=== PATIENT | male | born 1970 | race Caucasian/White ===

== ENCOUNTER 2022-01-04 22:52 | Emergency (ER) | payer BC, SELFPAY ==
--- NOTE | ~2022-01-04 | CT_ITS ---
EXAMINATION: CT brain wo con INDICATION: Acute onset confusion, seizure COMPARISON: None TECHNIQUE: Standard unenhanced head CT. The dose-length product (DLP) was 605.33 mGy-cm. The mA was a djusted according to patient size. Iterative reconstruction technique was employed. FINDINGS: Motion artifact limits the examination. There is no definite acute infarction or mass lesio n. Areas of hyperattenuation are seen in the frontal lobes which could relate to motion artifact cosby concepción subtle subarachnoid hemorrhage cannot be excluded. The ventricles are normal. There is no abnorma l mass effect or midline shift. The reyes-white matter differentiation is normal. The basal cisterns a re patent. The orbits are normal. The paranasal sinuses, mastoids and calvarium are normal. IMPRESSION: 1. Grossly no acute intracranial abnormality. Areas of hyperattenuation in the frontal lobes likely r eflect motion artifact but could obscure subtle subarachnoid hemorrhage. Repeat CT is recommended. As per stroke protocol, I called these findings and recommendations to the Emergency Department, and discussed with Dr. Chevy Ramos III, DO at 2316 hours. Reviewed, dictated and finalized at location F. IMPRESSION: 1. Grossly no acute intracranial abnormality. Areas of hyperattenuation in the frontal lobes likely reflect motion artifact but could obscure subtle subarachn oid hemorrhage. Repeat CT is recommended. As per stroke protocol, I called these findings and recommendations to the [facility], and discussed with Dr. Chevy Ramos III, DO at 2316 hour s.
--- NOTE | ~2022-01-04 | CT_ITS ---
EXAMINATION: CT brain wo con DATE: 01/04/2022 23:37 INDICATION: Cerebrovascular accident. TECHNIQUE: Computed tomography (CT) of the head was performed without intravenous contrast. The mA wa s adjusted according to patient size. Iterative reconstruction technique was employed. The dose-lengt h product was 832.33 mGy-cm. COMPARISON: Head CT at 11:03 PM FINDINGS: There is hyperdense acute subarachnoid hemorrhage in the anterior interhemispheric fissure and in left frontal lobe sulci. There is no acute ischemic infarct or abnormal mass lesion. The ventr icles are normal in size. There is mild mucosal thickening in the paranasal sinuses. The orbits are n ormal. The mastoid air cells are normal. IMPRESSION: 1. Acute subarachnoid hemorrhage in the anterior interhemispheric fissure and in left frontal lobe larios lci. Reviewed, dictated and finalized at location A. IMPRESSION: 1. Acute subarachnoid hemorrhage in the anterior interhemispheric fissure and i n left frontal lobe sulci.
--- NOTE | ~2022-01-04 | XR_ITS ---
EXAMINATION: XR chest 1V portable DATE: 01/05/2022 00:03 INDICATION: Cerebrovascular accident. TECHNIQUE: A single frontal view of the chest was obtained. COMPARISON: None. FINDINGS: A calcified right lung nodule and calcified mediastinal lymph nodes are consistent with old granulomas disc disease. No pleural effusion or pneumothorax. Cardiomegaly is noted. IMPRESSION: 1. Cardiomegaly. Reviewed, dictated and finalized at location A. IMPRESSION: 1. Cardiomegaly.
--- NOTE | 2022-01-04 22:56 | ECG_ITS ---
Measurements Intervals [place] Rate: 94 P: 15 OK: 165 QRS: 37 QRSD: 112 T: 29 QT: 367 QTc: 460 Interpretive Statements SINUS RHYTHM NORMAL EKG NO PREVIOUS ECG AVAILABLE FOR COMPARISON Electronically Signed On 01-06-2022 13:21:10 CDT by Sarah Bal M.D.
--- NOTE | 2022-01-04 22:59 | PC.NURSE ---
Per ED charge Nurse pt. has a SZ. HANS Ramos 2mg Ativan IVP
--- NOTE | 2022-01-04 23:05 | ED.NEUROSD ---
HPI - Neuro Symptoms/Deficit General Chief Complaint: Suspected CVA Stated Complaint: STROKE SYMPTOMS Time Seen by Provider: 01/04/22 22:57 Source: EMS Mode of arrival: EMS Limitations: altered mental status History of Present Illness HPI Narrative: Per EMS patient became acutely confused about 30 minutes ago. On arrival patient was confused and only followed some simple commands but was otherwise unresponsive. Pt had a generalized seizure on the way to CT. Onset (ago): minute(s) (30) History of same: No Related Data Allergies Allergy/AdvReac Type Severity Reaction Status Date / Time No Known Allergies Allergy Mild Verified 04/20/13 11:07 Review of Systems Review of Systems: ROS unobtainable: Yes unobtainable due to mental status Exam Const: General: patient obtunded Nutritional Appearance: obese Orientation/consciousness: patient obtunded Limitations: altered mental status HENMT: Head: normal to inspection Eyes: Pupils: Equal, round and reactive pupils present Neck: Neck: normal visual inspection and no meningeal signs Chest: Chest palpation & inspection: normal inspection of the chest Resp: Effort & Inspection: normal respiratory effort Auscultation: clear to auscultation bilaterally Cardio: Rate: tachycardic GI: Inspection: obesity GI Palp: Yes Soft to palpation Skin: General skin exam: normal color, no rashes or lesions noted and turgor normal Neuro: General: patient obtunded Extrem: General: normal to inspection and no clubbing, cyanosis or edema Course Course Emergency Course: Pt a little more alert and responsive at 0010, family with pt. D/W Dr Reese , neurology at [facility] will accept pt, will contact neurosurgery, d/w Chelsey in ER will accept pt Vital Signs Vital signs: Vital Signs Temperature 98.4 F 01/04/22 23:06 Pulse Rate 87 01/04/22 23:06 Respiratory Rate 24 H 01/04/22 23:06 Blood Pressure 197/127 H 01/04/22 23:06 Pulse Oximetry 95 01/04/22 23:06 Temperature 98.4 F 01/04/22 23:06 Pulse Rate 86 01/05/22 00:47 Respiratory Rate 20 01/05/22 00:47 Blood Pressure 186/133 H 01/05/22 00:47 Pulse Oximetry 96 01/05/22 00:47 MDM - Neuro Symptoms/Deficit Lab Data Result diagrams: 01/04/22 23:11 01/04/22 23:11 Labs: Lab Results 01/04/22 01/04/22 01/04/22 Range/Units 23:06 23:11 23:11 WBC 7.3 (4.5-10.0) K/mm3 RBC 5.85 (4.6-6.20) M/mm3 Hgb 16.7 (14.0-18.0) g/dL Hct 52.3 H (42.0-52.0) % MCV 89.4 (80-100) fl MCH 28.5 (26-34) pg MCHC 31.9 L (32-36) g/dl RDW 12.6 (11.5-14.5) % Plt Count 230 (150-375) k/mm3 MPV 9.8 (7.4-10.4) fl Immature Gran % (Auto) 0.5 (0-0.5) % Neut % (Auto) 46.5 (45.5-73.1) % Lymph % (Auto) 42.7 (18.3-44.2) % Porter % (Auto) 7.4 (2.6-8.5) % Eos % (Auto) 2.2 (0-4.4) % Baso % (Auto) 0.7 (0.2-1.2) % Lymph # (Auto) 3.12 (0.9-3.2) K/mm3 Porter # (Auto) 0.5 (0.1-0.6) K/mm3 Eos # (Auto) 0.2 (0-0.3) K/mm3 Baso # (Auto) 0.1 (0.0-0.1) K/mm3 Abs Immat Gran (auto) 0.04 H (0.00-0.031) K/mm3 Absolute Neuts (auto) 3.4 (1.3-6.7) K/mm3 Absolute Nucleated RBC 0.0 (0.0-0.012) K/mm3 Nucleated RBC % 0.0 (0.0-0.2) % PT 13.7 (11.1-14.7) Seconds INR 1.1 APTT 21.3 L (22.3-36.8) SECONDS Sodium (137-145) mmol/L Potassium (3.4-5.0) mmol/L Chloride (98-107) mmol/L Carbon Dioxide (22-30) mmol/L Anion Gap (8-16) mmol/L BUN (9-20) mg/dL Creatinine (0.7-1.3) mg/dL Estim Creat Clear Calc ml/min Estimated GFR (59 - ) Glucose (65-110) mg/dL POC Capillary Glucose > 500 H* (65-105) mg/dl Calcium (8.4-10.2) mg/dL Total Bilirubin (0.2-1.3) mg/dL AST (17-59) U/L ALT (4-50) U/L Alkaline Phosphatase (38-126) U/L Troponin I (0.000-0.034) ng/mL Total Protein (6.3-8.2) g/dL Albumin (3.5-5.1) g/dL Urine Color (Y
[2022-01-04 23:06] VITALS: BP 197/127; PULSE 87; RESP 24; TEMP 36.9; O2SAT 95
[2022-01-04 23:13] LABS: Glucose Point of Care > 500 mg/dl (65-105)
[2022-01-04 23:18] LABS: Basophils Absolute Auto 0.1 K/mm3 (0.0-0.1); Basophils Percent Auto 0.7 % (0.2-1.2); Eosinophils Absolute Auto 0.2 K/mm3 (0-0.3); Eosinophils Percent Auto 2.2 % (0-4.4); Hematocrit 52.3 % (42.0-52.0); Hemoglobin 16.7 g/dL (14.0-18.0); Immature Granulocyte Absolute 0.04 K/mm3 (0.00-0.031); Immature Granulocyte Percent A 0.5 % (0-0.5); Lymphocytes Absolute Auto 3.12 K/mm3 (0.9-3.2); Lymphocytes Percent Auto 42.7 % (18.3-44.2); Mean Corpuscular HGB Conc 31.9 g/dl (32-36); Mean Corpuscular Hemoglobin 28.5 pg (26-34); Mean Corpuscular Volume 89.4 fl (80-100); Mean Platelet Volume 9.8 fl (7.4-10.4); Monocytes Absolute Auto 0.5 K/mm3 (0.1-0.6); Monocytes Percent Auto 7.4 % (2.6-8.5); Neutrophils Absolute Auto 3.4 K/mm3 (1.3-6.7); Neutrophils Percent Auto 46.5 % (45.5-73.1); Platelet Count Result 230 k/mm3 (150-375); Red Blood Count 5.85 M/mm3 (4.6-6.20); Red Cell Distribution Width 12.6 % (11.5-14.5); White Blood Count 7.3 K/mm3 (4.5-10.0)
[2022-01-04 23:29] LABS: Albumin Level 4.5 g/dL (3.5-5.1); Alkaline Phosphatase 82 U/L (38-126); Anion Gap 18 mmol/L (8-16); Aspartate Amino Transferase 53 U/L (17-59); Bilirubin,Total 0.6 mg/dL (0.2-1.3); Blood Urea Nitrogen 17 mg/dL (9-20); Calcium 9.3 mg/dL (8.4-10.2); Carbon Dioxide 22 mmol/L (22-30); Chloride 97 mmol/L (98-107); Estimated CRCL calculation 118 ml/min; Estimated Glomerular Filt Rate > 60; Glucose 483 mg/dL (65-110); INR 1.1; Partial Thromboplastin Time 21.3 SECONDS (22.3-36.8); Potassium 3.7 mmol/L (3.4-5.0); Prothrombin Time 13.7 Seconds (11.1-14.7); Sodium 137 mmol/L (137-145)
[2022-01-04 23:43] LABS: Troponin I < 0.012 ng/mL (0.000-0.034)
[2022-01-04 23:44] LABS: Alanine Aminotransferase 71 U/L (4-50)
[2022-01-04 23:56] VITALS: BP 179/120; RESP 20; O2SAT 99
[2022-01-05] MEDS: INSULIN HUMAN REGULAR (*BKC) 100 UNITS/ML 14 UNITS IV PUSH (00:04)
[2022-01-05 00:18] LABS: Amphetamine Screen Urine Negative (Negative); Barbiturate Screen Urine Negative (Negative); Benzodiazepines Screen Urine Negative (Negative); Cannabinoid Screen Urine Negative (Negative); Cocaine Screen Urine Negative (Negative); Methadone Screen Urine Negative (Negative); Opiate Screen Urine Negative (Negative); Phencyclidine Screen Urine Negative (Negative)
[2022-01-05 00:19] LABS: Add Urine Microscopic? YES; Appearance Urine Clear (Clear); Bilirubin Urine Negative (Negative); Blood Urine 1+ (Negative); Color Urine Straw (Yellow); Glucose Urine UA 3+ mg/dL (Negative); Ketones Urine Negative (Negative); Leukocyte Esterase Ur Negative LEU/UL (Negative); Nitrate Urine Negative (Negative); Protein Urine 3+ mg/dL (Negative); RBC Urine 0-2 /hpf (0-2); Squamous Epithelial Cell Urine Rare /hpf (Few); Urobilinogen Urine Negative mg/dL (<2.0)
[2022-01-05] MEDS: LABETALOL HCL INJ 100 MG/20 ML VIAL 20 MG IV PUSH (00:19)
--- NOTE | 2022-01-05 00:42 | PC.NURSE ---
When the pt arrived at CT he began to have a seizure and was administered 2mg Ativan. The medication was documented as discontinued by this RN in error. The pt received 2mg IV push Ativan at 2259. The pt was also administered Labetelol prior to being transferred to the care of the [facility] team. Repeat blood pressure was not done due to lack of time after dose. Blood sugar was re checked prior to the pt leaving as well. Pt safely transferred to [facility] at this time.
[2022-01-05 00:47] VITALS: BP 186/133; PULSE 86; RESP 20; O2SAT 96
[2022-01-05 00:49] LABS: Glucose Point of Care 327 mg/dl (65-105)
== END 2022-01-05 00:48 | disposition short-term general hospital (02) ==
PROVIDERS: Emergency Provider Emergency Medicine; PCP Family Medicine
DX: I60.9 Nontraumatic subarachnoid hemorrhage, unspecified (principal)
CPT/HCPCS: 36415; 70450; 71045; 80053; 80307; 81001; 82948; 84484; 85025; 85610; 85730; 87086; 93005; 96374; 96375; 99291; J1815; J2060

== ENCOUNTER 2022-03-20 10:16 | Emergency (ER) | payer BC, SELFPAY ==
[2022-03-20 10:38] VITALS: BP 149/95; PULSE 75; RESP 20; TEMP 36.6; O2SAT 99
--- NOTE | 2022-03-20 10:46 | ED.GENADULT ---
HPI - General Adult General Chief complaint: Skin/Abscess/Foreign Body Stated complaint: rash Time Seen by Provider: 03/20/22 10:46 Source: patient Mode of arrival: ambulatory Limitations: no limitations History of Present Illness HPI narrative: 52-year-old male patient presents to the [facility] with complaints of a poison brigida rash to the left arm, right wrist, chin and left leg. Patient states has been there approximately 1 week and has been getting worse. Patient denies using anything over on the rash since it started. Denies taking any antihistamines. Patient states that he is a diabetic and was released from the hospital back in December for a subarachnoid hemorrhage and new onset of diabetes. Patient states that sugars have been doing well and has been monitoring them about 3-4 times a day. Patient denies any chest pain or shortness of breath at this time. Related Data Home Medications Medication Instructions Recorded Confirmed alcohol swabs (BD Alcohol Swabs) pad topical 03/20/22 atorvastatin 10 mg tablet tablet 03/20/22 dulaglutide 0.75 mg/0.5 mL ea subcut 03/20/22 subcutaneous pen injector (Trulicity) insulin glargine 100 unit/mL (3 ea subcut 03/20/22 mL) subcutaneous pen (Basaglar KwikPen U-100 Insulin) lisinopril 20 mg tablet tablet 03/20/22 metoprolol tartrate 25 mg tablet tablet 03/20/22 nimodipine 30 mg capsule cap 03/20/22 pen needle, diabetic 32 gauge x 03/20/22 03/20/22 5/32 (BD Ultra-Fine Mary Pen Needle) Allergies Allergy/AdvReac Type Severity Reaction Status Date / Time No Known Allergies Allergy Mild Verified 04/20/13 11:07 Review of Systems Review of Systems: CONSTITUTIONAL: Denies fever, chills, or sweats. EYES: Denies visual changes, redness, or discharge. ENT: Denies rhinorrhea, congestion, sore throat, or otalgia. CARDIOVASCULAR: Denies chest pain, palpitations, or edema. RESPIRATORY: Denies cough or dyspnea. GASTROINTESTINAL: Denies abdominal pain, nausea, vomiting, or diarrhea. GENITOURINARY: Denies dysuria or hematuria. SKIN: Positive rash with itching to bilateral upper extremities worse on the left. Chin and left lower extremity x1 week MUSCULOSKELETAL: Denies back pain, joint pain, or myalgia. NEUROLOGIC: Denies headache, numbness, or weakness. PSYCHIATRIC: Denies anxiety or depression. [facility] Past Medical History Medical History (Updated 03/20/22 @ 11:12 by CHARLY Mccabe) Hypertension Sleep apnea Subarachnoid hemorrhage Type 2 diabetes mellitus Comments At the time of my signature I agree with nursing past medical history, surgical, social, and family history. There is no relevant family history pertinent to the presenting complaint. Exam Narrative: GENERAL: Well-appearing, well-nourished, and in no acute distress. HEAD: Normocephalic, atraumatic. EYES: PERRLA and EOMI. ENT: Nares clear, no rhinorrhea or epistaxis. Mucous membranes moist. NECK: Supple. No lymphadenopathy CHEST: Clear to auscultation. No respiratory distress. HEART: Regular rate and rhythm. No murmur heard. Normal peripheral pulses. ABDOMEN: Soft, nontender, nondistended, normal active bowel sounds. EXTREMITIES: Normal range of motion. No edema. SKIN: Patient has erythemic papule rash noted to the left arm from the elbow to the wrist. Patient has another patch of a similar looking rash to the right wrist. No other papular red rash to the chin and behind the left calf. There is slight yellow bubbly discharge noted to the left arm which appears to be the worst area. NEURO: No focal deficits. Alert and oriented x3. Course Course Level of Care: Express Care Visit Vital Signs Vital signs: Vital Signs Temperature 36.6 C 03/20/22 10:38 Pulse Rate 75 03/20/22 10:38 Respiratory Rate 20 03/20/22 10:38 Blood Pressure 149/95 H 03/20/22 10:38 Pulse Oximetry 99 03/20/22 10:38 Oxygen Delivery Room Air 03/20/22 10:38 Temperature 36.6 C 03/20/22 10:38
== END 2022-03-20 11:13 | disposition home or self-care (01) ==
PROVIDERS: Emergency Provider Nurse Practitioner Family; PCP Internal Medicine
DX: L25.5 Unspecified contact dermatitis due to plants, except food (principal); I10 Essential (primary) hypertension; E11.9 Type 2 diabetes mellitus without complications; G47.30 Sleep apnea, unspecified
CPT/HCPCS: 99213; G0463

== ENCOUNTER 2022-06-07 10:30 | Outpatient (RCR) | payer BC, SELFPAY | END 2022-06-07 14:16 | disposition home or self-care (01) | LOC: ANHDMC 10:30 | PROVIDERS: PCP Internal Medicine; Visit Provider Internal Medicine | DX: E11.9 Type 2 diabetes mellitus without complications (principal); I60.9 Nontraumatic subarachnoid hemorrhage, unspecified; Z71.89 Other specified counseling | CPT/HCPCS: G0108 ==

== ENCOUNTER 2022-10-04 17:15 | Observation (INO) | payer BC, SELFPAY ==
[2022-10-04] VITALS (23 sets, daily range): BP systolic 150–208; BP diastolic 95–119; PULSE 60–75; RESP 10–29; TEMP 36.2–36.4; O2SAT 95–100; BMI 30.8
--- NOTE | ~2022-10-04 | XR_ITS ---
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 RESULT: Lines, tubes, and devices: None. Lungs and pleura: Clear. Cardiomediastinal silhouette: Stable. Calcified right paratracheal node. Other: No acute osseous or upper abdominal finding. IMPRESSION: No acute cardiopulmonary process. Reviewed, dictated and finalized at location K. ULATING DRYING SUPERVISOR
--- NOTE | ~2022-10-04 | CT_ITS ---
EXAMINATION: CT brain wo con DATE: 10/04/2022 17:50 INDICATION: Hx of subarachnoid hemorrhage, now Hypertensive. TECHNIQUE: Computed tomography (CT) of the head was performed without intravenous contrast. The mA wa s adjusted according to patient size. Iterative reconstruction technique was employed. The dose-lengt h product was 605.33 mGy-cm. COMPARISON: 01/04/2022. FINDINGS: No acute intracranial hemorrhage or extra-axial fluid collection. No hydrocephalus, mass, or herniation. No acute ischemic infarct. Unremarkable dural venous sinus attenuation. No acute osseous abnormality. The aerated spaces are clear. IMPRESSION: No acute intracranial process. Reviewed, dictated and finalized at location K. INSPECTOR
--- NOTE | 2022-10-04 17:38 | ECG_ITS ---
Measurements Intervals [place] Rate: 64 P: 29 ME: 194 QRS: 6 QRSD: 114 T: 21 QT: 386 QTc: 399 Interpretive Statements SINUS RHYTHM ANTEROSEPTAL INFARCT, AGE INDETERMINATE CONSIDER INFERIOR INFARCT, AGE INDETERMINATE BASELINE ARTIFACT- I, II, III, AVR, AVL, AVF ABNORMAL ECG COMPARED TO ECG 01/04/2022 23:09:05 MYOCARDIAL INFARCT FINDING NOW PRESENT Electronically Signed On 10-05-2022 7:42:42 BUSBOY by Waldo Valenzuela D.O.
--- NOTE | 2022-10-04 17:40 | ED.GENADULT ---
HPI - General Adult General Chief complaint: Recheck/Abnormal Lab/Rx <AKASH Enamorado - Last Filed: 12/13/22 09:03> Stated complaint: hypertension <AKASH Enamorado - Last Filed: 12/13/22 09:03> Time Seen by Provider: 10/04/22 17:28 <AKASH Enamorado - Last Filed: 12/13/22 09:03> Source: patient and family <AKASH Enamorado - Last Filed: 12/13/22 09:03> Mode of arrival: ambulatory <AKASH Enamorado - Last Filed: 12/13/22 09:03> Limitations: no limitations <AKASH Enamorado - Last Filed: 12/13/22 09:03> History of Present Illness HPI narrative: This 52 year old male patient with significant PMH of prior spontaneous Subarachnoid Hemorrhage, HTN, DM, and HLD presents to the ER independently ambulatory and accompanied by his family with complaints of Hypertension. Pt. had a spontaneous subarachnoid hemorrhage in December 2021 that was most likely attributed to his elevated blood pressure according to the Neurology staff at [facility]. After he was hospitalized, the pt. started following a strict diet and has lost 100 lbs, dropping his A1C from 14 to 6.0, and with the administration of Blood pressure medications gained control of his blood pressure with his usual BP now running in the low 187m-9-costa/60s-80s. Pt. states that over the course of the past week the patient's BP has gradually increased and has been more unstable with the SBP running 180s-low 200s/90s-low 100s. Along with this elevated BP, the patient has been having increased dizziness that has progressed over the past two days. He denies any change in vision, but reports he has been so dizzy that the room appears to be tilted on it's side. He has no CP, dyspnea, N/V/D. He endorses compliance with HTN regimens. <AKASH Enamorado - Last Filed: 12/13/22 09:03> Onset (ago): day(s) (3-4) <AKASH Enamorado - Last Filed: 12/13/22 09:03> Location: head <AKASH Enamorado Last Filed: 12/13/22 09:03> Radiation: non-radiation <AKASH Enamorado - Last Filed: 12/13/22 09:03> Severity: mild <AKASH Enamorado - Last Filed: 12/13/22 09:03> Quality: aching <AKASH Enamorado - Last Filed: 12/13/22 09:03> Pain Consistency: intermittent (Becoming increasingly constant and increasing in intensity) <AKASH Enamorado - Last Filed: 12/13/22 09:03> Relieving factors: none <AKASH Enamorado - Last Filed: 12/13/22 09:03> Exacerbating factors: none <AKASH Enamorado - Last Filed: 12/13/22 09:03> Associated symptoms: denies other symptoms <AKASH Enamorado Last Filed: 12/13/22 09:03> Related Data Home medications: Home Medications Medication Instructions Recorded Confirmed dulaglutide 0.75 mg/0.5 mL 0.75 mg subcut WEEKLY 03/20/22 10/08/22 subcutaneous pen injector ([facility]) lisinopril 20 mg tablet 20 mg PO DAILY 03/20/22 10/08/22 metoprolol tartrate 25 mg tablet 25 mg PO BID 03/20/22 10/08/22 metformin 500 mg tablet,extended 500 mg PO DAILY 10/04/22 10/08/22 release 24 hr <AKASH Enamorado - Last Filed: 12/13/22 09:03> Allergies/adverse reactions: Allergies Allergy/AdvReac Type Severity Reaction Status Date / Time No Known Allergies Allergy Mild Verified 10/08/22 02:45 <AKASH Enamorado - Last Filed: 12/13/22 09:03> Review of Systems Review of Systems: All systems reviewed & are unremarkable except as noted in HPI and below <AKASH Enamorado - Last Filed: 12/13/22 09:03> [facility] Past Medical History Medical History: Medical History (Updated 10/08/22 @ 11:53 by Ciara Ayers, ) GERD (gastroesophageal reflux disease) Hyperlipidemia Hypertension Obstructive sleep apnea Compliant with CPAP Subarachnoid hemorrhage (12/2021) Managed medically Type 2 diabetes mellitus <Vee Senior
[2022-10-04 18:12] LABS: Basophils Absolute Auto 0.1 K/mm3 (0.0-0.1); Basophils Percent Auto 0.8 % (0.2-1.2); Eosinophils Absolute Auto 0.2 K/mm3 (0-0.3); Eosinophils Percent Auto 3.2 % (0-4.4); Hematocrit 49.5 % (42.0-52.0); Hemoglobin 16.3 g/dL (14.0-18.0); Immature Granulocyte Absolute 0.01 K/mm3 (0.00-0.031); Immature Granulocyte Percent A 0.1 % (0-0.5); Lymphocytes Absolute Auto 2.69 K/mm3 (0.9-3.2); Mean Corpuscular HGB Conc 32.9 g/dl (32-36); Mean Corpuscular Hemoglobin 29.4 pg (26-34); Mean Corpuscular Volume 89.2 fl (80-100); Mean Platelet Volume 8.9 fl (7.4-10.4); Monocytes Absolute Auto 0.5 K/mm3 (0.1-0.6); Monocytes Percent Auto 6.7 % (2.6-8.5); Neutrophils Percent Auto 53.2 % (45.5-73.1); Platelet Count Result 236 k/mm3 (150-375); Red Blood Count 5.55 M/mm3 (4.6-6.20); Red Cell Distribution Width 13.4 % (11.5-14.5); White Blood Count 7.5 K/mm3 (4.5-10.0)
[2022-10-04 18:22] LABS: Alanine Aminotransferase 37 U/L (6-50); Albumin Level 4.9 g/dL (3.5-5.1); Alkaline Phosphatase 61 U/L (38-126); Anion Gap 7 mmol/L (8-16); Aspartate Amino Transferase 34 U/L (17-59); Bilirubin,Total 0.7 mg/dL (0.2-1.3); Blood Urea Nitrogen 22 mg/dL (9-20); Calcium 9.8 mg/dL (8.4-10.2); Carbon Dioxide 30 mmol/L (22-30); Chloride 99 mmol/L (98-107); Estimated CRCL calculation 91 ml/min; Estimated Glomerular Filt Rate > 60; Glucose 98 mg/dL (65-110); Potassium 3.4 mmol/L (3.4-5.0); Sodium 136 mmol/L (137-145)
[2022-10-04 18:33] LABS: Troponin I < 0.012 ng/mL (0.000-0.034)
[2022-10-04] MEDS: LABETALOL HCL INJ 100 MG/20 ML VIAL 10 MG IV PUSH (18:33)
[2022-10-04] MEDS: hydrALAZINE HCL 20 MG/ML VIAL 10 MG IV PUSH ×2 (20:17→23:06)
[2022-10-04 21:18] LABS: Influenza A QL RT-PCR Negative (Negative); Influenza B QL RT-PCR Negative (Negative); RSV RNA, RT-PCR Negative (Negative); SARS-CoV-2 RNA PCR Negative
[2022-10-04] MEDS: METOPROLOL TARTRATE 25 MG TABLET PO (21:25)
--- NOTE | 2022-10-04 22:30 | PC.NURSE ---
Patient care report called to CRISS Khan. All questions answered at this time.
--- NOTE | 2022-10-04 22:55 | ADMGEN ---
This patient, Roel Yo, was admitted to IMU Room 209-01. Patient/family oriented to hospital policies and general routines including ID bracelet, bed and alarms, visiting hours, pain management, procedures, bathroom and other care routines, personal items, smoking policy, room service/diet, and visiting hours. Information on how to activate the Rapid Response Team has been discussed. Patient/Family are encouraged to report perceived risks to care and to ask questions if they do not understand what they are told or what they should do.
[2022-10-05] VITALS (18 sets, daily range): BP systolic 132–163; BP diastolic 80–109; PULSE 51–80; RESP 14–20; TEMP 36.3–36.6; O2SAT 96–100
--- NOTE | 2022-10-05 01:19 | PC.NURSE ---
Maintenance checked home CPAP and said it is ok for hospital use.
--- NOTE | 2022-10-05 02:37 | PM.IMHP ---
H&P: HPI History of Present Illness Date/Time: 10/05/22 00:37 Chief Complaint: Headache, high blood pressure Narrative: 52-year-old male with past medical history of subarachnoid hemorrhage in the left parietal region December 2021, type 2 diabetes mellitus and obstructive sleep apnea who presented to the ER ambulatory from home with headache, dizziness and high blood pressure. The patient reported that for the last 2 or 3 days he has been having left-sided headache and pain to the base of his neck. He reports that the left-sided ache was in the same where he had his prior sub arachnoid hemorrhage in the left parietal region. The headache was 3/10 in intensity. He would lay down and the headache would get better. He was attributing the headache to stress specially the pain at the base of his head. He denies any associated nausea vomiting or visual changes at that time. He told me that he had not been checking his blood pressures the last couple of days but had evidently told the ER staff that he has been checking his blood pressures and they have been gradually going up over the last couple of days. He has not had any recent changes in his blood pressure meds and has been taking his metoprolol 25 mg b.i.d. and lisinopril 20 mg daily as directed. He has not missed any doses. But then today he was walking around the house and stopped to talk to his . He suddenly had a more severe headache with pain being 6/10 intensity dull aching in nature. Without accompanying nausea, vomiting. However he did have vertiginous symptoms. His checked his blood pressure at that time in his systolic blood pressures were in the 180s to 200 over 90-110. He denied any blurred vision, extremity weakness, chest pain, shortness of breath, nausea vomiting or diaphoresis. On arrival to the ER patient's blood pressure was 208/114. He received a dose of IV labetalol and IV hydralazine in the ER. His blood pressures improved to 150/99. He was accepted for admission to the IMU. I requested the patient receive his evening dose of metoprolol. On arrival to the IMU the patient did have a brief recurrent episode of vertigo but was not as severe as when he was at home. He reported that at home he felt as if the room head tipped on X axis any spinning like he had fallen off of a [id number]. Reports that since his hospitalization in December of 2021 he has lost between 70-100 lb. When he was not admitted for his subarachnoid hemorrhage he did not know he was diabetic in his A1c was 14. He has brought his A1c down to 6. He is on Trulicity and metformin at home. He does have obstructive sleep apnea and is compliant with his machine. He has his home CPAP with him. Review of Systems Review of Systems: 12 systems were reviewed with pertinent positives and negatives per HPI. Except as documented in the HPI, all other systems were reviewed and are negative. [facility] Past Medical History Medical History (Updated 10/05/22 @ 03:15 by Marlen Cazares DO) GERD (gastroesophageal reflux disease) Hyperlipidemia Hypertension Obstructive sleep apnea Compliant with CPAP Subarachnoid hemorrhage (12/2021) Managed medically Type 2 diabetes mellitus Surgical History Surgical History (Updated 10/05/22 @ 03:01 by Marlen Cazares DO) No history of previous surgery Family History Family History (Updated 10/05/22 @ 03:01 by Marlen Cazares DO) Other Adopted Social History Social History (Updated 10/05/22 @ 03:03 by Marlen Cazares DO) Social History: 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 He has 2 teenage children. He denies any history of tobacco or drug use. He drinks maybe 1 alcoholic beverage a month. Code status: Full code Surrogate decision maker: Smoking status: Never smoker Second hand tobacco smoke exposure: Yes Alcohol intake: former Substance use: never
[2022-10-05] MEDS: WATER FOR IRRIGATION, STERILE 1,000 ML BOTTLE 1000 ML (03:31)
[2022-10-05] MEDS: amLODIPine BESYLATE 5 MG TABLET PO ×2 (03:37→08:50)
[2022-10-05] MEDS: metFORMIN HCL XR 500 MG TAB.SR.24H PO (07:58)
[2022-10-05] MEDS: lisinopriL 20 MG TABLET PO (07:58)
[2022-10-05] MEDS: ATORVASTATIN 10 MG TABLET PO (07:59)
[2022-10-05] MEDS: METOPROLOL TARTRATE 25 MG TABLET PO (07:59)
[2022-10-05 08:20] LABS: Glucose Point of Care 108 mg/dl (65-105)
[2022-10-05] MEDS: ACETAMINOPHEN 325 MG TABLET 650 MG PO (08:53)
[2022-10-05 11:46] LABS: Glucose Point of Care 107 mg/dl (65-105)
--- NOTE | 2022-10-05 15:15 | PM.DS ---
DS: Admitting Diagnosis Discharge Date 10/05/2022 Admitting Diagnosis Headache, high blood pressure DS: Discharge Diagnosis Discharge Diagnosis (1) Hypertensive urgency: Code(s): I16.0 - Hypertensive urgency Status: Acute Assessment and Plan: The patient's blood pressures are still elevated beyond gold. Hydralazine has been ordered as needed for systolic blood pressures greater than 160. Patient received his home metoprolol in the ER as well as dose of hydralazine IV and IV labetalol. He is now sinus bradycardia with rate of 54. Will add Norvasc x1 now and will start Norvasc 5 mg p.o. daily. add norvasc to his home medications (2) Obstructive sleep apnea: Code(s): G47.33 - Obstructive sleep apnea (adult) (pediatric) Status: Acute Assessment and Plan: Patient may use his home CPAP. (3) Type 2 diabetes mellitus: Qualifiers: Diabetes mellitus complication status: without complication Diabetes mellitus oysterman insulin use: without oysterman use Qualified Code(s): E11.9 - Type 2 diabetes mellitus without complications Code(s): E11.9 - Type 2 diabetes mellitus without complications Status: Acute Assessment and Plan: The patient has type 2 diabetes mellitus but glucoses are stable. Accu-Cheks have been ordered and hypoglycemia protocol has been provided. Patient now has good glycemic control with recent A1c within this month of 6 %. The patient received Trulicity weekly. He can resume this when he goes home. (4) Subarachnoid hemorrhage: Onset Date: 12/2021 Code(s): I60.9 - Nontraumatic subarachnoid hemorrhage, unspecified Status: Acute Assessment and Plan: Given his history of prior subarachnoid hemorrhage. pt monitored in hospital. CT head reviewed prior to dc Plan Patient has been admitted as observation status. DS: Summary Hospital Course Hospital Course: Pt admitted for HTN urgency bp are better pt feels better no headache ready for DC. labs and ct head reviwed prior to dc. Time Spent with Patient Time attestation: Total time spent providing and/or coordinating discharge services: Exam Const: General: healthy appearing, no acute distress, alert and well nourished; No diaphoretic Nutritional Appearance: well nourished Orientation/consciousness: patient oriented x3 Limitations: no limitations Other: Obese, no acute distress, appears stated age Cardio: Rate: regular rate Rhythm: regular rhythm Heart sounds: no murmurs Other: Sinus bradycardia, 2+ bilateral radial pedal pulses, no murmur GI: Auscultation: normal bowel sounds Other: Distended, soft, nontender, positive bowel sounds, no organomegaly Neuro: General: patient oriented x3, moves all extremities, no meningeal signs, no focal motor deficits and CN's II-XI intact bilaterally Cranial nerves: Yes Equal, round and reactive pupils present Speech: normal speech Gait exam (Neuro): Normal gait present Other: Alert oriented x4, speech is clear, no facial asymmetry, extraocular movements intact, pupils equal and reactive, cranial nerves 2-12 grossly intact, no pronator drift Extrem: General: normal to inspection, no clubbing, cyanosis or edema and no pedal edema Other: No clubbing, cyanosis or edema, 5/5 registered safety engineer strength bilaterally, 5 5 lower extremity strength, patient sits up and moves around unassisted Psych: Mental Status: mental status grossly normal Affect: normal affect Other: Loquacious, pleasant and cooperative, appropriate mood and affect, judgment and insight intact DS: Data Data Completed and Pending Labs on day of discharge: Labs from last 24 hours 10/05/22 10/05/22 10/04/22 11:37 07:31 20:29 WBC RBC Hgb Hct MCV MCH MCHC RDW Plt Count MPV Immature Gran % (Auto) Neut % (Auto) Lymph % (Auto) Greene % (Auto) Eos % (Auto) Baso % (Auto) Lymph # (Auto) Greene # (
== END 2022-10-05 17:10 | disposition home or self-care (01) ==
LOC: ANHED 20:52 → ANHIMU 22:30
PROVIDERS: Emergency Medicine; Admitting Provider Internal Medicine; Emergency Provider Nurse Practitioner Adult Health; PCP Internal Medicine; Visit Provider Family Medicine
DX: I16.0 Hypertensive urgency (principal); I10 Essential (primary) hypertension; E11.9 Type 2 diabetes mellitus without complications; G47.33 Obstructive sleep apnea (adult) (pediatric); Z99.89 Dependence on other enabling machines and devices; E78.5 Hyperlipidemia, unspecified; R94.31 Abnormal electrocardiogram [ECG] [EKG]; F10.90 Alcohol use, unspecified, uncomplicated; Z79.4 Long term (current) use of insulin; Z86.79 Personal history of other diseases of the circulatory system; Z79.899 Other long term (current) drug therapy; Z20.822 Contact with and (suspected) exposure to COVID-19
CPT/HCPCS: 36415; 70450; 71045; 80053; 82948; 83735; 84484; 85025; 87637; 93005; 96374; 96375; 96376; 99285; A9270; G0378; J0360

== ENCOUNTER 2022-10-08 02:38 | Inpatient (IN) | payer BC, SELFPAY ==
[2022-10-08] VITALS (15 sets, daily range): BP systolic 156–168; BP diastolic 90–106; PULSE 60–94; RESP 12–18; TEMP 36.4–37.1; O2SAT 94–100; BMI 30.1
--- NOTE | 2022-10-08 | ECHO_ITS ---
Patient Info Name: Roel Yo Age: 52 years : 1970 Gender: Male Ht: 74 in Wt: 231 lbs BSA: 2.36 m2 HR: 78 bpm BP: 156 / 94 mmHg Technical Quality: Fair Exam Date: 10/08/2022 10:27 AM Exam Location: [facility] Pulmonary Exam Room: [facility] Patient Status: Inpatient Admit Date: 10/08/2022 Staff Ordering Physician: Virginie Ernst MD Loader Unloader: Ernestina Lemon RDCS Attending Provider: Virginie Ernst MD Exam Type: CA echo doppler w bubble study Study Info Indications - CVA Complete two-dimensional, color flow and Doppler transthoracic echocardiogram is performed with agitated saline. Contrast/Agitated Saline Contrast/Ag. Saline: Agitated Saline Amount: 20.00 ml Administered By: Lauren Taylor RDCS Existing IV Access: Yes IV Access Condition: patent with no signs of infiltration Summary 1. Left ventricular chamber dimension is normal. 2. Left ventricular systolic function is normal, estimated at 65-70%. 3. There is mildly increased left ventricular wall thickness. 4. The left ventricular diastolic function is grade II diastolic dysfunction. 5. E/e' 10 is mildly elevated. 6. There is trace tricuspid valve regurgitation. 7. No pulmonary hypertension, estimated pulmonary arterial systolic pressure is 37 mmHg. Left Ventricle E/e' 10 is mildly elevated. Left ventricular chamber dimension is normal. Left ventricular systolic function is normal, estimated at 65-70%. There is mildly increased left ventricular wall thickness. The left ventricular diastolic function is grade II diastolic dysfunction. Right Ventricle Right ventricular chamber dimension is normal. Right ventricular systolic function is normal. Left Atria Left atrial chamber dimension is normal. Right Atria Right atrial chamber dimension is normal. Atrial Septum Agitated saline injection with and without valsalva maneuver opacified right side cardiac chambers without shunt to left side cardiac chambers. Intact interatrial septum visualized by 2D and agitated saline imaging. Aortic Valve The aortic valve is trileaflet. There is no aortic valve stenosis. There is no aortic valve regurgitation. Pulmonic Valve There is no pulmonic regurgitation. Mitral Valve There is no mitral valve stenosis. There is no mitral valve regurgitation. Tricuspid Valve There is trace tricuspid valve regurgitation. No pulmonary hypertension, estimated pulmonary arterial systolic pressure is 37 mmHg. Pericardium/Pleural There is no pericardial effusion. Inferior Vena Cava Normal inferior vena cava with >50% collapse upon inspiration consistent with normal right atrial pressure, 5 mmHg. Aorta The aortic root size at the sinus of Valsalva is normal. Left Ventricular Outflow Tract Name Value Normal LVOT 2D LVOT Diameter 2.1 cm LVOT Doppler LVOT Peak Gradient 7 mmHg LVOT Mean Gradient 4 mmHg LVOT VTI 28 cm LVOT VTI/AV VTI Ratio 0.8 L
--- NOTE | ~2022-10-08 | XR_ITS ---
Portable chest x-ray Comparison: 10/04/2022 Clinical History: Nausea and vomiting Findings: Stable enlarged, calcified presumed lymph nodes along the right paratracheal stripe. Lungs are clear, without focal consolidation or pleural effusion. Cardiomediastinal silhouette is stable. Bones and soft tissues are unremarkable. Impression: Clear lungs. Stable calcified lymph nodes along the right paratracheal stripe. Reviewed, dictated and finalized at location . [employer]IST [employer] Impression: Clear lungs. Stable calcified lymph nodes along the right paratracheal stripe.
--- NOTE | ~2022-10-08 | CT_ITS ---
Non-contrast Head CT History: Dizziness, paresthesia COMPARISON: 10/04/2022 Technique: Axial non-contrast imaging of the brain was performed. Dose reduction technique was used on this scan by utilizing automated exposure control and iterative reconstruction technique. The dose -length product (DLP) was 605.33 mGy-cm. Findings: There is no evidence of intracranial hemorrhage, mass lesion, or acute infarct. Brain par enchyma appears normal. The ventricles and subarachnoid spaces are normal in size. The calvarium ap pears normal. The visualized paranasal sinuses and mastoid air cells are clear. Impression: No significant abnormality seen. Reviewed, dictated and finalized at location . NESS SPECIALIST Impression: No significant abnormality seen.
--- NOTE | ~2022-10-08 | MR_ITS ---
MRI of the brain Clinical History: Dizziness Technique: Axial and sagittal T1-weighted images were acquired. These were followed by axial T2-weigh bryn, diffusion weighted, gradient, and FLAIR images. Following intravenous administration of 20 cc Mu ltiHance gadolinium, T1-weighted fat-sat imaging was performed in the axial, coronal, and sagittal pl anes. Findings: There are 3 very small foci of restricted diffusion in the left inferior cerebellum, compat ible tiny acute infarcts. No intracranial hemorrhage identified. No other significant abnormality see n in the brain parenchyma. Ventricles and subarachnoid spaces are unremarkable. Orbits are unremarkable. Paranasal sinuses and m astoid air cells are clear. Major intracranial flow voids appear intact. Sagittal midline structures are intact. No abnormal postcontrast enhancement identified. IMPRESSION: 3 small foci of acute infarction in the left inferior cerebellum. Reviewed, dictated and finalized at location . [employer]
--- NOTE | ~2022-10-08 | CT_ITS ---
CT ANGIOGRAM NECK AND HEAD History: CVA. Technique: Serial spiral axial images through the head and neck were obtained during arterial phase I V injection of 100 cc of Omnipaque 350. 3-D postprocessing and MIP images were then reconstructed on the remote workstation. Dose reduction technique was used on this scan by utilizing automated exposur e control and iterative reconstruction technique. The dose-length product (DLP) was 1200.36 mGy-cm. CTA neck findings: Bilateral common carotid, internal carotid, and external carotid arteries are pat ent. The proximal right internal carotid artery demonstrates 0% stenosis relative to the normal dista l artery lumen diameter. The proximal left internal carotid artery demonstrates 0% stenosis relative to the normal distal artery lumen diameter. Bilateral vertebral arteries are patent. CTA head findings: Distal vertebral arteries, basilar artery, and posterior cerebral arteries are pat ent. Distal internal carotid arteries, middle cerebral arteries, and anterior cerebral arteries are p atent. No large vessel occlusion. No stenosis or aneurysm. Impression: Unremarkable exam. Reviewed, dictated and finalized at location . SURGICAL Impression: Unremarkable exam.
--- NOTE | 2022-10-08 02:45 | ECG_ITS ---
Measurements Intervals [place] Rate: 74 P: 20 [place]: 183 QRS: 38 QRSD: 117 T: 38 QT: 396 QTc: 440 Interpretive Statements SINUS RHYTHM CANNOT RULE OUT SEPTAL INFARCT, AGE INDETERMINATE ABNORMAL ECG COMPARED TO ECG 10/04/2022 18:07:21 NO SIGNIFICANT CHANGES Electronically Signed On 10-08-2022 7:59:25 BLACKING MACHINE OPERATOR by Waldo Valenzuela D.O.
[2022-10-08] MEDS: ONDANSETRON INJ 4 MG/2 ML VIAL IV PUSH ×3 (03:07→11:55)
[2022-10-08 03:17] LABS: Basophils Absolute Auto 0.1 K/mm3 (0.0-0.1); Basophils Percent Auto 0.6 % (0.2-1.2); Eosinophils Absolute Auto 0.2 K/mm3 (0-0.3); Eosinophils Percent Auto 1.7 % (0-4.4); Hematocrit 49.9 % (42.0-52.0); Hemoglobin 16.5 g/dL (14.0-18.0); Immature Granulocyte Absolute 0.03 K/mm3 (0.00-0.031); Immature Granulocyte Percent A 0.3 % (0-0.5); Lymphocytes Absolute Auto 2.24 K/mm3 (0.9-3.2); Lymphocytes Percent Auto 25.9 % (18.3-44.2); Mean Corpuscular HGB Conc 33.1 g/dl (32-36); Mean Corpuscular Hemoglobin 29.5 pg (26-34); Mean Corpuscular Volume 89.1 fl (80-100); Mean Platelet Volume 9.3 fl (7.4-10.4); Monocytes Absolute Auto 0.6 K/mm3 (0.1-0.6); Monocytes Percent Auto 6.4 % (2.6-8.5); Neutrophils Absolute Auto 5.6 K/mm3 (1.3-6.7); Neutrophils Percent Auto 65.1 % (45.5-73.1); Platelet Count Result 261 k/mm3 (150-375); Red Cell Distribution Width 13.5 % (11.5-14.5); White Blood Count 8.7 K/mm3 (4.5-10.0)
[2022-10-08 03:29] LABS: Alanine Aminotransferase 38 U/L (6-50); Albumin Level 4.8 g/dL (3.5-5.1); Alkaline Phosphatase 69 U/L (38-126); Anion Gap 8 mmol/L (8-16); Aspartate Amino Transferase 33 U/L (17-59); Bilirubin,Total 0.9 mg/dL (0.2-1.3); Blood Urea Nitrogen 21 mg/dL (9-20); Calcium 9.7 mg/dL (8.4-10.2); Carbon Dioxide 29 mmol/L (22-30); Chloride 101 mmol/L (98-107); Estimated Glomerular Filt Rate > 60; Glucose 133 mg/dL (65-110); INR 1.1; Potassium 3.5 mmol/L (3.4-5.0); Prothrombin Time 13.6 Seconds (11.1-14.7); Sodium 138 mmol/L (137-145)
[2022-10-08 03:30] LABS: Partial Thromboplastin Time 26.6 SECONDS (22.3-36.8)
[2022-10-08 03:40] LABS: Troponin I < 0.012 ng/mL (0.000-0.034)
--- NOTE | 2022-10-08 03:43 | ED.DIZZY ---
HPI - Dizziness General Chief Complaint: Dizziness Stated Complaint: dizzy Time Seen by Provider: 10/08/22 02:45 Source: patient and family Mode of arrival: ambulatory Limitations: no limitations History of Present Illness HPI Narrative: 52-year-old with a history of hypertension, diabetes here with complaints of sudden onset of dizziness since last evening. Patient states that about 9:00 he was sleeping on the couch felt dizzy, left side of his face was cool and numb he also stated that he was unable to use his left upper extremity. Around about midnight his felt extremely dizzy and started vomiting. He states that he was feeling dizzy and shaky. He checked his blood sugar was about 110. Denied any headache, chest pain, shortness of breath. He also states that he had a subarachnoid bleed last year Related Data Home Medications Medication Instructions Recorded Confirmed atorvastatin 10 mg tablet 10 tablet PO DAILY 03/20/22 10/04/22 dulaglutide 0.75 mg/0.5 mL See Rx Instructions .Route .COMPLEX 03/20/22 10/04/22 subcutaneous pen injector (Trulicity) lisinopril 20 mg tablet 20 mg PO DAILY 03/20/22 10/04/22 metoprolol tartrate 25 mg tablet 25 mg PO BID 03/20/22 10/04/22 metformin 500 mg tablet,extended 500 mg PO DAILY 10/04/22 10/04/22 release 24 hr Allergies Allergy/AdvReac Type Severity Reaction Status Date / Time No Known Allergies Allergy Mild Verified 10/08/22 02:45 Review of Systems Review of Systems: All systems reviewed & are unremarkable except as noted in HPI and below Constitutional: Constitutional: Reports no additional constitutional complaints Eyes: Eyes: Reports no additional eye complaints ENT: Reports system reviewed and no additional complaints, except as documented Cardiovascular: Cardiovascular: Reports no additional cardiovascular complaints Respiratory: Respiratory: Reports no additional respiratory complaints Gastrointestinal: Gastrointestinal: Reports as per HPI Neurologic: Reports as per HPI Psychiatric: Psychiatric: Reports no additional psychiatric complaints [facility] Past Medical History Medical History GERD (gastroesophageal reflux disease) Hyperlipidemia Hypertension Obstructive sleep apnea Compliant with CPAP Subarachnoid hemorrhage (12/2021) Managed medically Type 2 diabetes mellitus Surgical History Surgical History No history of previous surgery Family History Family History Other Adopted Social History Social History Social History: 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 He has 2 teenage children. He denies any history of tobacco or drug use. He drinks maybe 1 alcoholic beverage a month. Code status: Full code Surrogate decision maker: Smoking status: Never smoker Second hand tobacco smoke exposure: Yes Alcohol intake: former Substance use: never Lack of Transportation: No Lack of Food: Never True Current Housing: I Have Housing Concerned About Future Housing: No Difficulty Paying Gas/Electric Bills: No Difficulty Paying for Meds: No Currently Unemployed: No Education: High School Diploma/GED Difficulty w/ Childcare or Family Care: No Spiritual care concerns: No Exam Narrative: GENERAL: Well-appearing, well-nourished, and in no acute distress. HEAD: Normocephalic, atraumatic. EYES: PERRLA and EOMI. NECK: Supple. CHEST: Clear to auscultation. No respiratory distress. HEART: Regular rate and rhythm. No murmur heard. Normal peripheral pulses. ABDOMEN: Soft, nontender, nondistended, normal active bowel sounds. EXTREMITIES: Normal range of motion. No edema. SKIN: Warm, dry, no rash. NEURO: No focal deficits. Alert and
--- NOTE | 2022-10-08 04:01 | PM.IMHP ---
H&P: HPI History of Present Illness Date/Time: 10/08/22 04:01 Chief Complaint: Dizziness, facial numbness, unstable gait Narrative: 52 years old man history of hypertension, hyperlipidemia, type 2 diabetes, subarachnoid hemorrhage presenting ED with a chief complaint of dizziness. patient started have dizziness intermittent day since Tuesday, patient denies head trauma, fever, chills, photophobia. Patient was admitted a hospital, and discharged on Tuesday. Patient started to have dizziness again about 11:00 p.m. yesterday, patient also has a lot of facial numbness, and patient also feels unstable when walking. Patient denies chest pain, shortness of breath palpitation, vision change, nausea vomiting diarrhea dysuria. Review of Systems Review of Systems: All systems reviewed & are unremarkable except as noted in HPI and below PMFSH Past Medical History Medical History (Updated 10/08/22 @ 04:34 by Virginie Ernst MD) GERD (gastroesophageal reflux disease) Hyperlipidemia Hypertension Obstructive sleep apnea Compliant with CPAP Subarachnoid hemorrhage (12/2021) Managed medically Type 2 diabetes mellitus Surgical History Surgical History (Updated 10/05/22 @ 03:01 by Marlen Cazares DO) No history of previous surgery Family History Family History (Updated 10/05/22 @ 03:01 by Marlen Cazares DO) Other Adopted Social History Social History (Updated 10/05/22 @ 03:03 by Marlen Cazares DO) Social History: 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 He has 2 teenage children. He denies any history of tobacco or drug use. He drinks maybe 1 alcoholic beverage a month. Code status: Full code Surrogate decision maker: Smoking status: Never smoker Second hand tobacco smoke exposure: Yes Alcohol intake: former Substance use: never Lack of Transportation: No Lack of Food: Never True Current Housing: I Have Housing Concerned About Future Housing: No Difficulty Paying Gas/Electric Bills: No Difficulty Paying for Meds: No Currently Unemployed: No Education: High School Diploma/GED Difficulty w/ Childcare or Family Care: No Spiritual care concerns: No Meds Home Medications and Allergies Home Medications Medication Instructions Recorded Confirmed Type atorvastatin 10 mg tablet 10 tablet PO DAILY 03/20/22 10/04/22 History dulaglutide 0.75 mg/0.5 mL See Rx Instructions .Route .COMPLEX 07/09/22 01/23/23 History subcutaneous pen injector (Trulicity) lisinopril 20 mg tablet 20 mg PO DAILY 03/20/22 10/04/22 History metoprolol tartrate 25 mg tablet 25 mg PO BID 03/20/22 10/04/22 History metformin 500 mg tablet,extended 500 mg PO DAILY 10/04/22 10/04/22 History release 24 hr amlodipine 5 mg tablet (Norvasc) 5 mg PO QAM #30 tabs 10/05/22 Rx Allergies Allergy/AdvReac Type Severity Reaction Status Date / Time No Known Allergies Allergy Mild Verified 10/08/22 02:45 Vital Signs Vital Signs - 24 hr 10/08/22 02:39 10/08/22 02:43 Temperature 98.7 F Pulse Rate 80 80 Respiratory Rate 12 Blood Pressure 164/106 H Pulse Oximetry 98 Oxygen Delivery Room Air Exam Narrative: GENERAL: Pleasant, in no acute distress. Well-nourished. - EYES: EOMI. Anicteric. - HENT: Moist mucous membranes. - LUNGS: Clear to auscultation bilaterally, no wheezing, rhonchi, or rales. - CARDIOVASCULAR: Regular rate and rhythm. No murmur. No JVD. - ABDOMEN: Soft, non-tender and non-distended. No palpable masses. - EXTREMITIES: No edema. Peripheral pulses 2+. Non-tender. - NEUROLOGIC: No focal neurological deficits. CN II-XII grossly intact. Numbness of left face at mouth - PSYCHIATRIC: Awake, Alert and oriented x 3. Appropriate mood and affect. - SKIN: No rashes or lesions. Warm. - LYMPH: No cervical lymphadenopathy. H&P: Results Labs Labs: Short CBC 10/08/22 Range/Units 03:01 WB
[2022-10-08 04:09] LABS: Influenza A QL RT-PCR Negative (Negative); Influenza B QL RT-PCR Negative (Negative); RSV RNA, RT-PCR Negative (Negative); SARS-CoV-2 RNA PCR Negative
[2022-10-08] MEDS: METOCLOPRAMIDE HCL INJ 10 MG/2 ML VIAL IV PUSH (04:25)
--- NOTE | 2022-10-08 05:28 | PC.NURSE ---
Patient arrived to floor @ 0506
[2022-10-08 06:02] LABS: Hemoglobin A1C 5.8 % (<5.7)
[2022-10-08 07:58] LABS: Glucose Point of Care 164 mg/dl (65-105)
--- NOTE | 2022-10-08 08:02 | PM.IMPN ---
Progress Note: A&P Assessment and Plan (1) Cerebellar stroke, acute: Code(s): I63.9 - Cerebral infarction, unspecified Status: Acute Assessment and Plan: MRI brain showing 3 small foci of acute infarcts in the left inferior cerebellum consistent with patient's symptoms Continue neuro checks, neurology consult pending Will check lipid panel, A1c 5.8, echo with bubble study pending (2) Type 2 diabetes mellitus: Qualifiers: Diabetes mellitus complication status: without complication Diabetes mellitus fdc insulin use: without fdc use Qualified Code(s): E11.9 - Type 2 diabetes mellitus without complications Code(s): E11.9 - Type 2 diabetes mellitus without complications Status: Acute Assessment and Plan: Hold metformin, A1c 5.8 Accu-Cheks with sliding scale insulin (3) Hypertension: Code(s): I10 - Essential (primary) hypertension Status: Acute Assessment and Plan: Acute cerebellar CVA Permissive hypertension Hold hypertension medication except SBP above 220 or DBP 120 (4) Obstructive sleep apnea: Code(s): G47.33 - Obstructive sleep apnea (adult) (pediatric) Status: Acute Assessment and Plan: CPAP with auto titration while here (5) Subarachnoid hemorrhage: Onset Date: 12/2021 Code(s): I60.9 - Nontraumatic subarachnoid hemorrhage, unspecified Status: Acute Assessment and Plan: Avoid pharmacological anticoagulation Plan Pertinent past medical history of subarachnoid hemorrhage noted DVT prophylaxis with lovenox GI prophylaxis not indicated Code status full code Subjective Date/time seen: 10/08/22 08:02 Interval history: No overnight events noted. No chest pain or shortness of breath. Significant dizziness with nausea and vomiting. No fevers or chills. Review of Systems Review of Systems: All systems reviewed & are unremarkable except as noted in HPI and below Exam Narrative: General: Alert and oriented per baseline, mild distress with nausea, emesis and vertigo symptoms HEENT: Atraumatic, normocephalic, mucous membranes moist CV: Regular rate and rhythm, S1, S2 Lungs: Clear to auscultation bilaterally, no rales or crackles noted, no wheezes, good air entry Abdomen: Soft, nontender, nondistended Extremities: Normal to inspection Skin: No rashes noted, no lesions or wounds seen Psych: Eyes closed, unable to assess, appears euthymic but in mild distress, as above Objective Data Vital Signs Vital Signs: Vital Signs - 24 hr 10/08/22 02:39 10/08/22 02:43 10/08/22 03:28 Temperature 98.7 F Pulse Rate 80 80 79 Respiratory Rate 12 13 Blood Pressure 164/106 H Pulse Oximetry 98 100 Oxygen Delivery Room Air 10/08/22 03:30 10/08/22 03:31 10/08/22 04:08 Temperature Pulse Rate 72 76 68 Respiratory Rate 17 Blood Pressure 161/100 H Pulse Oximetry 100 100 97 Oxygen Delivery 10/08/22 04:15 10/08/22 05:09 Temperature 97.8 F Pulse Rate 79 78 Respiratory Rate 18 18 Blood Pressure 156/94 H Pulse Oximetry 100 100 Oxygen Delivery Intake/Output Intake/Output: Intake & Output 10/05/22 10/06/22 10/07/22 10/08/22 23:59 23:59 23:59 23:59 Output Total 100 Balance -100 Meds/Results Medications: Active Medications Generic Name Dose Route Start Last Admin Trade Name Freq PRN Reason Stop Dose Admin Acetaminophen 650 mg 10/08/22 04:46 Acetaminophen 325 Mg Tablet PO Q4H PRN Mild Pain (1-3) or Fever Aspirin 81 mg 10/08/22 09:00 Aspirin 81 Mg Enteric Tablet PO QAM [facility] Atorvastatin Calcium 40 mg 10/08/22 09:00 Atorvastatin 40 Mg Tablet PO DAILY [facility] Dextrose 12.5 gm 10/08/22 04:41 Dextrose 50% 25 Gm/50 Ml Syringe IV PUSH PRN PRN Hypoglycemia Protocol Enoxaparin Sodium 40 mg 10/08/22 09:00 Enoxaparin 40 Mg/0.4 Ml Syringe SUB-Q DAILY [facility] Glucagon 1 mg
[2022-10-08] MEDS: LORazepam INJ (*CRX) 2 MG/ML VIAL 1 MG IV PUSH (08:12)
--- NOTE | 2022-10-08 08:27 | PC.NURSE ---
to MRI via wheelchair
--- NOTE | 2022-10-08 09:24 | PC.NURSE ---
pt returned from MRI
[2022-10-08] MEDS: MECLIZINE HCL 25 MG TABLET PO (11:55)
[2022-10-08] MEDS: ASPIRIN 81 MG ENTERIC TABLET PO (11:56)
[2022-10-08] MEDS: ATORVASTATIN 40 MG TABLET PO (11:56)
[2022-10-08] MEDS: METOPROLOL TARTRATE 25 MG TABLET PO ×2 (11:56→20:19)
[2022-10-08] MEDS: ENOXAPARIN 40 MG/0.4 ML SYRINGE SUB-Q (11:56)
[2022-10-08 12:16] LABS: Glucose Point of Care 149 mg/dl (65-105)
[2022-10-08 15:32] LABS: Glucose Point of Care 128 mg/dl (65-105)
[2022-10-08] MEDS: LORazepam (*CRX) 1 MG TABLET PO (16:35)
[2022-10-08] MEDS: SODIUM CHLORIDE 0.9% IV 1,000 ML 100 ML IV CONT (16:36)
[2022-10-08 17:38] LABS: Glucose Point of Care 132 mg/dl (65-105)
--- NOTE | 2022-10-08 17:53 | WPDNEURCNPN ---
Assessment and Plan Assessment and plan (1) Cerebellar stroke, acute: Code(s): I63.9 - Cerebral infarction, unspecified Status: Acute (2) Hypertension: Code(s): I10 - Essential (primary) hypertension Status: Acute (3) Dizziness: Code(s): R42 - Dizziness and giddiness Status: Acute (4) Type 2 diabetes mellitus: Qualifiers: Diabetes mellitus long term care phlebotomist insulin use: without long term care phlebotomist use Diabetes mellitus complication status: without complication Qualified Code(s): E11.9 - Type 2 diabetes mellitus without complications Code(s): E11.9 - Type 2 diabetes mellitus without complications Status: Acute (5) Obstructive sleep apnea: Code(s): G47.33 - Obstructive sleep apnea (adult) (pediatric) Status: Acute Plan 1 cerebellar infarct with negative CTA of the brain and neck will continue the medication as such and will obtain the echocardiogram with bubble study to evaluate the etiology of embolic stroke in further recommendation according Consult date: 10/08/22 HPI: Roel Yo is a 52 year old male admitted to the hospital through the emergency room for the complaints of dizzy in addition to the ongoing history of diabetes mellitus at around 9:00 p.m. he was sleeping on the couch felt dizzy left for the face was cooled and numb he was unable to use his left upper extremity and around about midnight is felt extremely dizzy and started vomiting blood sugar was checked and was 110 did not have any headache or chest pain medication as an outpatient included atorvastatin 10 mg daily with [place], lisinopril, metformin, and metoprolol 25 mg b.i.d., does have ongoing history of hyperlipidemia, hypertension, obstructive sleep apnea, though he is compliant with CPAP and history of subarachnoid hemorrhage in December of 2021 and history of diabetes mellitus, never a smoker substance use former alcohol intake, initial exam in the Emergency Room nonfocal, blood pressure 164/106, a brain MRI today 3 small foci of acute infarction in the left inferior cerebellum head neck CTA negative, x-ray chest with stable calcified lymph nodes along the right paratracheal stripe PMF Past Medical History Medical History (Updated 10/08/22 @ 11:53 by Ciara Ayers DO) GERD (gastroesophageal reflux disease) Hyperlipidemia Hypertension Obstructive sleep apnea Compliant with CPAP Subarachnoid hemorrhage (12/2021) Managed medically Type 2 diabetes mellitus Surgical History Surgical History No history of previous surgery Family History Family History Other Adopted Social History Social History Social History: 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 He has 2 teenage children. He denies any history of tobacco or drug use. He drinks maybe 1 alcoholic beverage a month. Code status: Full code Surrogate decision maker: Smoking status: Never smoker Second hand tobacco smoke exposure: Yes Alcohol intake: former Drinks per week: 1 Substance use: never Substance use type: does not use Lack of Transportation: No Lack of Food: Never True Current Housing: I Have Housing Concerned About Future Housing: No Difficulty Paying Gas/Electric Bills: No Difficulty Paying for Meds: No Currently Unemployed: No Education: Associate Degree Difficulty w/ Childcare or Family Care: No Spiritual care concerns: No Meds Home Medications and Allergies Home Medications Medication Instructions Recorded Confirmed Type atorvastatin 10 mg tablet 10 tablet PO DAILY 03/20/22 10/08/22 History dulaglutide 0.75 mg/0.5 mL 0.75 mg subcut WEEKLY 03/20/22 10/08/22 History subcutaneous pen injector (Trulicity) lisinopril 20 mg
[2022-10-08] MEDS: LORazepam INJ (*CRX) 2 MG/ML VIAL 0.5 MG IV PUSH (20:25)
[2022-10-08 20:48] LABS: Glucose Point of Care 98 mg/dl (65-105)
[2022-10-09] VITALS (11 sets, daily range): BP systolic 149–164; BP diastolic 81–102; PULSE 54–85; RESP 16–20; TEMP 36.6–36.8; O2SAT 97–99
[2022-10-09] MEDS: SODIUM CHLORIDE 0.9% IV 1,000 ML 100 ML IV CONT ×2 (05:39→15:53)
[2022-10-09 06:02] LABS: Basophils Absolute Auto 0.1 K/mm3 (0.0-0.1); Basophils Percent Auto 0.7 % (0.2-1.2); Eosinophils Absolute Auto 0.1 K/mm3 (0-0.3); Eosinophils Percent Auto 0.8 % (0-4.4); Hematocrit 44.9 % (42.0-52.0); Hemoglobin 14.7 g/dL (14.0-18.0); Immature Granulocyte Absolute 0.02 K/mm3 (0.00-0.031); Immature Granulocyte Percent A 0.3 % (0-0.5); Lymphocytes Absolute Auto 2.28 K/mm3 (0.9-3.2); Lymphocytes Percent Auto 30.9 % (18.3-44.2); Mean Corpuscular HGB Conc 32.7 g/dl (32-36); Mean Corpuscular Hemoglobin 29.9 pg (26-34); Mean Corpuscular Volume 91.4 fl (80-100); Mean Platelet Volume 9.1 fl (7.4-10.4); Monocytes Absolute Auto 0.6 K/mm3 (0.1-0.6); Monocytes Percent Auto 7.5 % (2.6-8.5); Neutrophils Absolute Auto 4.4 K/mm3 (1.3-6.7); Neutrophils Percent Auto 59.8 % (45.5-73.1); Platelet Count Result 193 k/mm3 (150-375); Red Blood Count 4.91 M/mm3 (4.6-6.20); Red Cell Distribution Width 13.5 % (11.5-14.5); White Blood Count 7.4 K/mm3 (4.5-10.0)
[2022-10-09 06:10] LABS: Alanine Aminotransferase 29 U/L (6-50); Albumin Level 3.6 g/dL (3.5-5.1); Alkaline Phosphatase 48 U/L (38-126); Anion Gap 6 mmol/L (8-16); Aspartate Amino Transferase 25 U/L (17-59); Bilirubin,Total 1.2 mg/dL (0.2-1.3); Blood Urea Nitrogen 16 mg/dL (9-20); Calcium 8.9 mg/dL (8.4-10.2); Carbon Dioxide 25 mmol/L (22-30); Chloride 107 mmol/L (98-107); Cholesterol 179 mg/dL (0-200); Estimated CRCL calculation 112 ml/min; Estimated Glomerular Filt Rate > 60; Glucose 99 mg/dL (65-110); HDL Direct 50 mg/dL; Potassium 3.8 mmol/L (3.4-5.0); Sodium 138 mmol/L (137-145); Triglycerides 82 mg/dL (<150)
[2022-10-09 06:21] LABS: LDL Cholesterol Direct 83 mg/dL
[2022-10-09] MEDS: ASPIRIN 81 MG ENTERIC TABLET PO (09:04)
[2022-10-09] MEDS: METOPROLOL TARTRATE 25 MG TABLET PO ×2 (09:04→20:17)
[2022-10-09] MEDS: ENOXAPARIN 40 MG/0.4 ML SYRINGE SUB-Q (09:05)
[2022-10-09] MEDS: ATORVASTATIN 40 MG TABLET PO (09:05)
[2022-10-09 09:14] LABS: Glucose Point of Care 100 mg/dl (65-105)
[2022-10-09 11:59] LABS: Glucose Point of Care 114 mg/dl (65-105)
--- NOTE | 2022-10-09 13:10 | PM.CNCAR ---
Assessment and Plan Assessment and plan (1) Cerebellar stroke, acute: Code(s): I63.9 - Cerebral infarction, unspecified Status: Acute Plan This is a 52-year-old man with hypertension type 2 diabetes and dyslipidemia who presented with a cerebellar stroke with which he is still symptomatic. He has no history of heart disease, no history of or evidence of atrial fibrillation and a structurally unremarkable transthoracic echocardiogram with agitated saline contrast injection demonstrated the absence of a intracardiac shunt. In this setting I do not see any role for performing a transesophageal echocardiogram. The likelihood that this stroke is a cardioembolic event is a very small and esophageal echocardiogram is generally not indicated. Jimmy Barnhart MD [facility] History of Present Illness History of Present Illness Consult date/time: 10/09/22 13:10 Reason For Visit: Dizziness Narrative: This is a 52-year-old man I am seeing at the request of the hospital physicians to apparently comment on the necessity/indication for transesophageal echocardiogram. The patient was seen in the 3rd floor medical telemetry room and his is in the room visiting him. The patient was hospitalized here yesterday after experiencing symptoms of significant lightheadedness I clumsiness of walking dizziness some symptoms that sound like vertigo and has been found to have had a cerebellar stroke. The patient has no previous history of CVA there are no evidence of strokes and other vascular distributions from what I see on the MRI report. The patient has no prior history of any cardiac problems. He does have a history of hypertension type 2 diabetes and dyslipidemia. A transthoracic echocardiogram was done following this admission and was interpreted by Dr. Valenzuela. The examination demonstrates normal left ventricular size and systolic function no significant atrial pathology, no significant valvular pathology and saline contrast injection did not demonstrated intracardiac shunt. Since admission he is in sinus rhythm on telemetry he has no history of atrial fibrillation and does not reporting these symptoms of intermittent palpitations. He is still nauseated when he is moved around for tests or taken somewhere in the wheelchair he has had these symptoms since the CVA. Review of Systems Constitutional: Constitutional: Reports no additional constitutional complaints Eyes: Eyes: Reports no additional eye complaints ENT: Reports system reviewed and no additional complaints, except as documented Cardiovascular: Cardiovascular: Reports no additional cardiovascular complaints Respiratory: Respiratory: Reports no additional respiratory complaints Gastrointestinal: Gastrointestinal: Reports nausea Genitourinary: Genitourinary: Reports no additional male genitourinary complaints Musculoskeletal: Musculoskeletal: Reports no additional musculoskeletal complaints Integumentary/Breasts: Skin/Breast: Reports system reviewed and no additional complaints, except as docu Neurologic: Reports as per HPI and Reports abnormal gait Endocrine: Endocrine: Reports no additional endocrine complaints Hematologic/Lymphatic: Hematologic/Lymphatic: Reports no additional hematologic/lymphatic complaints Allergic/Immunologic: Allergic/Immunologic: Reports no additional allergic/immunologic complaints [facility] Past Medical History Medical History (Updated 10/08/22 @ 11:53 by Ciara Ayers, ) GERD (gastroesophageal reflux disease) Hyperlipidemia Hypertension Obstructive sleep apnea Compliant with CPAP Subarachnoid hemorrhage (12/2021) Managed medically Type 2 diabetes mellitus Surgical History Surgical History No history of previous surgery Family History Family History Other Adopted Social History Social History (Reviewed 10/08/22 @ 04:1
[2022-10-09 14:27] LABS: Amphetamine Screen Urine Negative (Negative); Barbiturate Screen Urine Negative (Negative); Benzodiazepines Screen Urine Negative (Negative); Cannabinoid Screen Urine Negative (Negative); Cocaine Screen Urine Negative (Negative); Methadone Screen Urine Negative (Negative); Opiate Screen Urine Negative (Negative); Phencyclidine Screen Urine Negative (Negative)
--- NOTE | 2022-10-09 16:17 | PM.IMPN ---
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 Qualified Code(s): E11.9 - Type 2 diabetes mellitus without complications Code(s): E11.9 - Type 2 diabetes mellitus without complications Status: Acute Assessment and Plan: Hold metformin, A1c 5.8 Accu-Cheks with sliding scale insulin (3) Hypertension: Code(s): I10 - Essential (primary) hypertension Status: Acute Assessment and Plan: Acute cerebellar CVA Permissive hypertension Hold hypertension medication except SBP above 220 or DBP 120 (4) Obstructive sleep apnea: Code(s): G47.33 - Obstructive sleep apnea (adult) (pediatric) Status: Acute Assessment and Plan: CPAP with auto titration while here (5) Subarachnoid hemorrhage: Onset Date: 12/2021 Code(s): I60.9 - Nontraumatic subarachnoid hemorrhage, unspecified Status: Acute Assessment and Plan: Avoid pharmacological anticoagulation Plan Pertinent past medical history of subarachnoid hemorrhage noted DVT prophylaxis with lovenox GI prophylaxis not indicated Code status full code Subjective Date/time seen: 10/09/22 16:17 Interval history: No overnight events noted. No chest pain or shortness of breath. Improved dizziness and nausea, no emesis. Review of Systems Review of Systems: 12 point review of systems was assessed and was negative except as noted in the HPI Exam Narrative: General: Alert and oriented per baseline, no acute distress HEENT: Atraumatic, normocephalic, mucous membranes moist CV: Regular rate and rhythm, S1, S2 Lungs: Clear to auscultation bilaterally, no rales or crackles noted, no wheezes, good air entry Abdomen: Soft, nontender, nondistended Extremities: Normal to inspection Skin: No rashes noted, no lesions or wounds seen Psych: Euthymic, appropriate affect Objective Data Vital Signs Vital Signs: Vital Signs - 24 hr 10/08/22 20:00 10/08/22 20:19 10/08/22 20:00 Temperature 97.6 F Pulse Rate 63 72 77 Respiratory Rate 18 Blood Pressure 168/94 H Pulse Oximetry 98 Oxygen Delivery 10/08/22 20:00 10/09/22 00:00 10/09/22 00:30 Temperature 97.8 F Pulse Rate 72 57 L 73 Respiratory Rate 18 20 Blood Pressure 162/91 H Pulse Oximetry 98 98 Oxygen Delivery Room Air 10/09/22 04:00 10/09/22 04:42 10/09/22 09:04 Temperature 97.8 F Pulse Rate 54 L 74 67 Respiratory Rate 20 Blood Pressure 164/81 H Pulse Oximetry 99 Oxygen Delivery 10/09/22 08:00 10/09/22 12:05 10/09/22 12:00 Temperature 97.9 F Pulse Rate 57 L 74 85 Respiratory Rate 18 Blood Pressure 156/97 H Pulse Oximetry 98 Oxygen Delivery Intake/Output Intake/Output: Intake & Output 10/06/22 10/07/22 10/08/22 10/09/22 23:59 23:59 23:59 23:59 Intake Total 2360 Output Total 900 300 Balance -900 2060 Meds/Results Medications: Active Medications Generic Name Dose Route Start Last Admin Trade Name Freq PRN Reason Stop Dose Admin Acetaminophen 650 mg 10/08/22 04:46 Acetaminophen 325 Mg Tablet PO Q4H PRN Mild Pain (1-3) or Fever Aspirin 81 mg 10/08/22 09:00 10/09/22 09:04 Aspirin 81 Mg Enteric Tablet PO 81 mg QAM [facility] Administration Atorvastatin Calcium 40 mg 10/08/22 09:00 10/09/22 09:05 Atorvastatin 40 Mg Tablet PO 40 mg DAILY [facility]
[2022-10-09 17:21] LABS: Glucose Point of Care 100 mg/dl (65-105)
[2022-10-09 20:24] LABS: Glucose Point of Care 126 mg/dl (65-105)
[2022-10-10] VITALS (7 sets, daily range): BP systolic 134–153; BP diastolic 96–107; PULSE 54–73; RESP 16–18; TEMP 36.6–37; O2SAT 97–100
[2022-10-10 05:19] LABS: Basophils Absolute Auto 0.1 K/mm3 (0.0-0.1); Basophils Percent Auto 0.9 % (0.2-1.2); Eosinophils Absolute Auto 0.1 K/mm3 (0-0.3); Eosinophils Percent Auto 1.9 % (0-4.4); Hematocrit 43.2 % (42.0-52.0); Hemoglobin 14.4 g/dL (14.0-18.0); Immature Granulocyte Absolute 0.01 K/mm3 (0.00-0.031); Immature Granulocyte Percent A 0.1 % (0-0.5); Lymphocytes Absolute Auto 2.51 K/mm3 (0.9-3.2); Lymphocytes Percent Auto 36.5 % (18.3-44.2); Mean Corpuscular HGB Conc 33.3 g/dl (32-36); Mean Corpuscular Hemoglobin 29.5 pg (26-34); Mean Corpuscular Volume 88.5 fl (80-100); Mean Platelet Volume 8.8 fl (7.4-10.4); Monocytes Absolute Auto 0.5 K/mm3 (0.1-0.6); Monocytes Percent Auto 7.6 % (2.6-8.5); Neutrophils Absolute Auto 3.6 K/mm3 (1.3-6.7); Platelet Count Result 189 k/mm3 (150-375); Red Blood Count 4.88 M/mm3 (4.6-6.20); Red Cell Distribution Width 13.2 % (11.5-14.5); White Blood Count 6.9 K/mm3 (4.5-10.0)
[2022-10-10] MEDS: SODIUM CHLORIDE 0.9% IV 1,000 ML 100 ML IV CONT (05:35)
[2022-10-10 05:36] LABS: Alanine Aminotransferase 30 U/L (6-50); Albumin Level 3.6 g/dL (3.5-5.1); Alkaline Phosphatase 47 U/L (38-126); Anion Gap 4 mmol/L (8-16); Aspartate Amino Transferase 25 U/L (17-59); Bilirubin,Total 0.9 mg/dL (0.2-1.3); Blood Urea Nitrogen 16 mg/dL (9-20); Calcium 8.6 mg/dL (8.4-10.2); Carbon Dioxide 27 mmol/L (22-30); Chloride 108 mmol/L (98-107); Estimated CRCL calculation 91 ml/min; Estimated Glomerular Filt Rate > 60; Glucose 105 mg/dL (65-110); Potassium 3.9 mmol/L (3.4-5.0); Sodium 139 mmol/L (137-145)
[2022-10-10 08:38] LABS: Glucose Point of Care 100 mg/dl (65-105)
[2022-10-10] MEDS: ENOXAPARIN 40 MG/0.4 ML SYRINGE SUB-Q (09:32)
[2022-10-10] MEDS: ASPIRIN 81 MG ENTERIC TABLET PO (09:32)
[2022-10-10] MEDS: METOPROLOL TARTRATE 25 MG TABLET PO (09:32)
[2022-10-10] MEDS: ATORVASTATIN 40 MG TABLET PO (09:33)
--- NOTE | 2022-10-10 11:34 | PM.DS ---
DS: Admitting Diagnosis Discharge Date 10/10/22 Admitting Diagnosis vertigo DS: Discharge Diagnosis Discharge Diagnosis (1) Cerebellar stroke, acute: Code(s): I63.9 - Cerebral infarction, unspecified Status: Acute Assessment and Plan: MRI brain showing 3 small foci of acute infarcts in the left inferior cerebellum consistent with patient's symptoms Continue neuro checks, neurology consult noted Echo showing Ef 65-70%, grade II diastolic HF, no pulm HTN, no PFO, no significant valvular abnormalities Lipid panel WNL, A1c 5.8 (2) Type 2 diabetes mellitus: Qualifiers: Diabetes mellitus complication status: without complication 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: without 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 home use Qualified Code(s): E11.9 - Type 2 diabetes mellitus without complications Code(s): E11.9 - Type 2 diabetes mellitus without complications Status: Acute Assessment and Plan: Hold metformin, A1c 5.8 Accu-Cheks with sliding scale insulin (3) Hypertension: Code(s): I10 - Essential (primary) hypertension Status: Acute Assessment and Plan: Acute cerebellar CVA Permissive hypertension Hold hypertension medication except SBP above 220 or DBP 120 (4) Obstructive sleep apnea: Code(s): G47.33 - Obstructive sleep apnea (adult) (pediatric) Status: Acute Assessment and Plan: CPAP with auto titration while here (5) Subarachnoid hemorrhage: Onset Date: 12/2021 Code(s): I60.9 - Nontraumatic subarachnoid hemorrhage, unspecified Status: Acute Assessment and Plan: Avoid pharmacological anticoagulation Plan Pertinent past medical history of subarachnoid hemorrhage noted DVT prophylaxis with lovenox GI prophylaxis not indicated Code status full code DS: Summary Hospital Course Hospital Course: 52-year-old male with past medical history significant for hypertension, hyperlipidemia, diabetes and subarachnoid hemorrhage in December 2021 is presenting with sudden onset of vertigo. He was found to have a cerebellar stroke with 3 foci of acute infarct noted. Neurology was consulted. He was started on high-intensity statin, increased blood pressure medications and aspirin. Ativan seems to control his vertigo and nausea best. He was discharged in stable condition with close outpatient follow-up by Neurology. Cardiac workup did not show an etiology to his stroke and is thought to be of unknown etiology. Time Spent with Patient Time attestation: Total time spent providing and/or coordinating discharge services: Exam Narrative: General: Alert and oriented per baseline, no acute distress HEENT: Atraumatic, normocephalic, mucous membranes moist CV: Regular rate and rhythm, S1, S2 Lungs: Clear to auscultation bilaterally, no rales or crackles noted, no wheezes, good air entry Abdomen: Soft, nontender, nondistended Extremities: Normal to inspection Skin: No rashes noted, no lesions or wounds seen Psych: Euthymic, appropriate affect DS: Data Data Completed and Pending Labs on day of discharge: Labs from last 24 hours 10/10/22 10/10/22 10/10/22 08:31 05:13 05:13 WBC 6.9 RBC 4.88 Hgb 14.4 Hct 43.2 MCV 88.5 MCH 29.5 MCHC 33.3 RDW 13.2 Plt Count 189 MPV 8.8 Immature Gran % (Auto) 0.1 Neut % (Auto) 53.0 Lymph % (Auto) 36.5 Yell % (Auto) 7.6 Eos % (Auto) 1.9 Baso % (Auto) 0.9 Lymph # (Auto) 2.51 Yell # (Auto) 0.5 Eos # (Auto) 0.1 Baso # (Auto) 0.1 Abs Immat Gran (auto) 0.01 Absolute Neuts (auto) 3.6 Absolute Nucleated RBC 0.0 Nucleated RBC % 0.0 Sodium 139 Potassium 3.9 Chloride 108 H Carbon Dioxide 27 Anion Gap 4 L BUN 16 Creatinine 1.00 Estim Creat Clear Calc 91 Estimated GFR > 60 Glucose 105 POC Capillary Glucose 100 Calcium 8.6 Total Bilirubin 0.9 AST 25 ALT 30 Alkaline Phosphatase 47 Total P
[2022-10-10 11:56] LABS: Glucose Point of Care 180 mg/dl (65-105)
[2022-10-10] MEDS: ASPIRIN 325 MG TABLET PO (15:13)
== END 2022-10-10 17:30 | disposition home or self-care (01) | DRG 65 ==
LOC: ANHED 04:21 → ANH3MED 05:10
PROVIDERS: Admitting Provider Hospitalist; Emergency Provider Family Medicine; PCP Internal Medicine; Visit Provider Student in an Organized Health Care Education/Training Program
DX: I63.9 Cerebral infarction, unspecified (principal); I50.30 Unspecified diastolic (congestive) heart failure; I11.0 Hypertensive heart disease with heart failure; R29.700 NIHSS score 0; K21.9 Gastro-esophageal reflux disease without esophagitis; E78.5 Hyperlipidemia, unspecified; G47.33 Obstructive sleep apnea (adult) (pediatric); E11.9 Type 2 diabetes mellitus without complications; Z79.899 Other long term (current) drug therapy; Z79.84 Long term (current) use of oral hypoglycemic drugs
CPT/HCPCS: 36415; 70450; 70496; 70498; 70553; 71045; 80053; 80061; 80307; 82948; 83036; 84484; 85025; 85610; 85730; 87637; 93005; 93306; 96374; 96375; 96376; 97161; 97165; 99285; A9270; A9577; G0378; J1650; J2060; J2405; J2765; J7030; Q9967

== ENCOUNTER 2024-05-19 11:51 | Emergency (ER) | payer BC, SELFPAY ==
[2024-05-19 12:11] VITALS: BP 138/86; PULSE 74; RESP 16; TEMP 37.3; O2SAT 99
--- NOTE | 2024-05-19 12:23 | ED.SKABFB ---
HPI - Skin/Abscess/Foreign Bdy General Chief complaint: Skin/Abscess/Foreign Body Stated complaint: rash on arms Time Seen by Provider: 05/19/24 12:23 Source: patient Mode of arrival: ambulatory Limitations: no limitations History of Present Illness HPI narrative: 54-year-old male presents with poison brigida rash to bilateral arms. Reports severe allergic reaction in the past, from head to toe. In the past has gotten IM steroid injection to treat rash. All systems reviewed and negative except as noted above. Related Data Home Medications Medication Instructions Recorded Confirmed lisinopril 20 mg tablet 20 mg PO DAILY 03/20/22 05/19/24 metoprolol tartrate 25 mg tablet 25 mg PO BID 03/20/22 05/19/24 metformin 500 mg tablet,extended 500 mg PO DAILY 10/04/22 05/19/24 release 24 hr Allergies Allergy/AdvReac Type Severity Reaction Status Date / Time No Known Allergies Allergy Mild Verified 05/19/24 11:52 Review of Systems Review of Systems: CONSTITUTIONAL: Denies fever, chills, or sweats. EYES: Denies visual changes, redness, or discharge. ENT: Denies rhinorrhea, congestion, sore throat, or otalgia. CARDIOVASCULAR: Denies chest pain, palpitations, or edema. RESPIRATORY: Denies cough or dyspnea. GASTROINTESTINAL: Denies abdominal pain, nausea, vomiting, or diarrhea. GENITOURINARY: Denies dysuria or hematuria. SKIN: Reports poison brigida rash with itching to bilateral arms MUSCULOSKELETAL: Denies back pain, joint pain, or myalgia. NEUROLOGIC: Denies headache, numbness, or weakness. PSYCHIATRIC: Denies anxiety or depression. All other systems reviewed are negative, except as documented in HPI. 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 He has 2 teenage children. He denies any history of tobacco or drug use. He drinks maybe 1 alcoholic beverage a month. Code status: Full code Surrogate decision maker: Smoking status: Never smoker Second hand tobacco smoke exposure: Yes Alcohol intake: former Drinks per week: 1 Substance use: never Substance use type: does not use Lack of Transportation: No Lack of Food: Never True Current Housing: I Have Housing Concerned About Future Housing: No Difficulty Paying Gas/Electric Bills: No Difficulty Paying for Meds: No Currently Unemployed: No Education: Associate Degree Difficulty w/ Childcare or Family Care: No Spiritual care concerns: No Comments At time of signature, agree with nursing past medical, surgical, social and family history. There is no relevant family history pertinent to the presenting complaint. Exam Narrative: GENERAL: This is a well-nourished, well-developed patient, in no apparent distress. HEAD: normocephalic, atraumatic. EYES: PERRL. Sclera clear/white. Vision is grossly intact. EARS: External ears normal NOSE: External nose normal NECK: Neck supple, non-tender without lymphadenopathy, masses or thyromegaly. CARDIOVASCULAR: Regular rate and rhythm without murmurs, gallops, or rubs. RESPIRATORY: Clear to auscultation. Breath sounds equal bilaterally. No wheezes, rales, or rhonchi. SKIN: warm, Dry, intact, good texture and turgor. erythematous using vesicular rash to bilateral arms. Extends From mid upper arm down to hands.
[2024-05-19] MEDS: TRIAMCINOLONE ACET INJ 40 MG/ML VIAL IM (12:39)
== END 2024-05-19 12:45 | disposition home or self-care (01) ==
PROVIDERS: Emergency Provider Nurse Practitioner Family; PCP Internal Medicine
DX: L25.5 Unspecified contact dermatitis due to plants, except food (principal); K21.9 Gastro-esophageal reflux disease without esophagitis; E78.5 Hyperlipidemia, unspecified; I10 Essential (primary) hypertension; G47.33 Obstructive sleep apnea (adult) (pediatric); E11.9 Type 2 diabetes mellitus without complications; Z79.84 Long term (current) use of oral hypoglycemic drugs
CPT/HCPCS: 96372; 99213; G0463; J3301

== ENCOUNTER 2024-11-06 15:58 | Emergency (ER) | payer OTHER, SELFPAY ==
--- NOTE | ~2024-11-06 | XR_ITS ---
EXAMINATION: [id number] DATE: 11/06/2024 16:34 INDICATION: Left chest pain. Injury. TECHNIQUE: A frontal view of the chest and 2 views on 3 radiographs of the left ribs were obtained. COMPARISON: Chest single view 10/08/2022, CTA neck 10/08/2022 FINDINGS: A calcified right lung nodule and calcified mediastinal lymph nodes are consistent with old granulomatous disease. No pleural effusion or pneumothorax. The heart size is normal. IMPRESSION: 1. No rib fracture. Reviewed, dictated and finalized at location A. NER ANIMAL IMPRESSION: 1. No rib fracture.
[2024-11-06 16:16] VITALS: BP 139/94; PULSE 71; RESP 16; TEMP 36.8; O2SAT 99
--- NOTE | 2024-11-06 16:16 | ED_ITS ---
HPI - Extremity Problem General Chief complaint: Unspecified Stated complaint: left side pain w/movement, under shoulder blade Time Seen by Provider: 11/06/24 16:16 Source: patient, RN notes reviewed and old records reviewed Mode of arrival: ambulatory Limitations: no limitations History of Present Illness HPI Narrative: Patient presents with complaints of chest wall pain. He reports that he was sitting in a chair about 1 week ago when he leaned over to pick something off the floor, hitting his ribcage on the arm of the chair. He states that he has had pain ever since. Pain is worse with movement, deep breath, palpation. Patient has many daily medications, states that he has been afraid to take anything for his discomfort due to all of the medications he takes on a regular basis. He denies other injury and trauma. He has been participating in activities and going to work is normal. He does not appear to be in any obvious distress. No other concerns or complaints at this time. Denies other injury and trauma Related Data Home Medications ?Medication ?Instructions ?Recorded ?Confirmed ?Last Taken ?Type lisinopril 20 mg tablet 20 mg PO DAILY 03/20/22 05/19/24 10/07/22 08:00 History metoprolol tartrate 25 mg tablet 25 mg PO BID 03/20/22 05/19/24 10/07/22 21:00 History metformin 500 mg tablet,extended 500 mg PO DAILY 10/04/22 05/19/24 10/07/22 18:00 History release 24 hr Allergies Allergy/AdvReac Type Severity Reaction Status Date / Time No Known Allergies Allergy Mild Verified 11/06/24 16:16 Review of Systems 2 Review of Systems: All systems reviewed & are unremarkable except as noted in HPI and below Constitutional: Constitutional: Reports no additional constitutional complaints ENT: Reports system reviewed and no additional complaints, except as documented Cardiovascular: Cardiovascular: Reports no additional cardiovascular complaints Respiratory: Respiratory: Reports no additional respiratory complaints, Reports pain on inspiration and Reports pain with cough Gastrointestinal: Gastrointestinal: Reports no additional gastrointestinal complaints Musculoskeletal: Musculoskeletal: Reports as per HPI [facility] Past Medical History Medical History GERD (gastroesophageal reflux disease) Hyperlipidemia Obstructive sleep apnea Compliant with CPAP Type 2 diabetes mellitus Subarachnoid hemorrhage (12/2021) Managed medically Hypertension Surgical History Surgical History No history of previous surgery Family History Family History Other Adopted Social History Social History Social History: 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 He has 2 teenage children. He denies any history of tobacco or drug use. He drinks maybe 1 alcoholic beverage a month. Code status: Full code Surrogate decision maker: Smoking status: Never smoker Second hand tobacco smoke exposure: Yes Alcohol intake: former Drinks per week: 1 Substance use: never Substance use type: does not use Lack of Transportation: No Lack of Food: Never True Current Housing: I Have Housing Concerned About Future Housing: No Difficulty Paying Gas/Electric Bills: No Difficulty Paying for Meds: No Currently Unemployed: No Education: Associate Degree Difficulty w/ Childcare or Family Care: No Spiritual care concerns: No Comments At the time of my signature, I reviewed and agree with the nursing past medical, surgical, social, and family history. There is no relevant family history pertinent to the patient complaint. Exam 2 Const: General: cooperative, no acute distress, alert and awake O rientation/consciousness: oriented to person, oriented to place and oriented to time HENMT: Head: normal to inspection Chest: Chest/axillae images: 1. tenderness to palpation Resp: Effort & Inspection: normal respiratory effort and able to speak in complete sentences Auscultation: clear to auscultation bilaterally, no crackles, no rales, no rhonchi and no wheezes Cardio: Palpation: normal PMI Rate: regular rate Rhythm: regular rhythm Heart sounds: S1 normal heart sound present and S2 normal heart sound present Neuro: General: oriented to person, oriented to place and oriented to time Cranial nerves: Yes CN's II-XII intact bilaterally Psych: Appearance: grossly normal Thought process: Normal thought process present Insight: Good insight present (Psych) Judgement: Good judgement present (Psych) Course Course Level of Care: Express Care Visit Vital Signs Vital signs: Reviewed MDM - Extremity (Nontraumatic) MDM Narrative Medical decision making narrative: Reassuring physical exam and negative chest x-ray. Symptoms consistent with costochondritis, starts steroid burst. Discharge instructions reviewed with patient, as well as provided in writing per nursing staff. The instructions also include specific and strict return/GO TO THE ER as well as f/u information. All questions have been answered, and the patient deny any further questions with discharge and discharge plan. Some parts of this dictation were generated by voice recognition software and may contain typographical and/or grammatical inaccuracies. Differential Diagnosis Differential diagnosis: Likely other (Musculoskeletal pain, rib fracture) Discharge Plan Discharge Clinical Impression: Acute costochondritis Patient Disposition: Home, Self-Care Condition: Stable Instructions: Antibiotic Form, Costochondritis (ED) Additional Instructions: Take medications prescribed. Follow with primary care provider. Emergency department for new or worse symptoms Patient Language: [place]de[place] Prescriptions: New prednisone 50 mg tablet 50 mg PO DAILY Qty: 5 0RF No Action lisinopril 20 mg tablet 20 mg PO DAILY metoprolol tartrate 25 mg tablet 25 mg PO BID triamcinolone acetonide 0.1 % cream 1 applic topical BID Qty: 30 0RF hydroxyzine HCl 10 mg tablet 10 mg PO Q6-8H PRN (Reason: itching) Qty: 30 0RF metformin 500 mg tablet extended release 24 hr 500 mg PO DAILY aspirin 325 mg Tablet 325 mg PO DAILY@0800 30 Days Qty: 30 0RF amlodipine [Norvasc] 5 mg Tablet 10 mg PO QAM 30 Days Qty: 60 0RF atorvastatin 40 mg Tablet 80 mg PO DAILY 30 Days Qty: 60 0RF lorazepam [Ativan] 0.5 mg tablet 0.5 mg PO Q4H PRN (Reason: vertigo) Qty: 30 0RF Follow-up/Referrals: Abigail,Jaime Vargas MD [Primary Care Provider] - 1 Week Time of Disposition: 16:46
== END 2024-11-06 16:50 | disposition home or self-care (01) ==
PROVIDERS: Emergency Provider Nurse Practitioner Family; PCP Internal Medicine
DX: M94.0 Chondrocostal junction syndrome [Tietze] (principal); E11.9 Type 2 diabetes mellitus without complications; Z79.84 Long term (current) use of oral hypoglycemic drugs; I10 Essential (primary) hypertension; E78.5 Hyperlipidemia, unspecified; K21.9 Gastro-esophageal reflux disease without esophagitis; G47.33 Obstructive sleep apnea (adult) (pediatric)
CPT/HCPCS: 71101; 99213; G0463

== ENCOUNTER 2025-04-26 12:11 | Emergency (ER) | payer OTHER, SELFPAY ==
--- NOTE | ~2025-04-26 | CT_ITS ---
EXAMINATION: CT abdomen pelvis w con DATE: 04/26/2025 14:25 INDICATION: Bloody bowel movement. TECHNIQUE: Computed tomography (CT) of the abdomen and pelvis was performed without intravenous contr ast. The dose-length product was 1435.09 mGy-cm. COMPARISON: None. FINDINGS: The liver, spleen, pancreas, gallbladder are unremarkable. There is a 3.1 cm left renal cyst. Aorta is not aneurysmal. There is a 1.5 cm cyst in the right kidne y. Bladder is unremarkable. No enlarged lymph nodes in the abdomen or pelvis. Thickening of the cain of the descending colon with a small amount of surrounding fat stranding like ly due to colitis. Moderate degenerative change at the L5-S1 level. IMPRESSION: 1. Thickening of the cain of the descending colon with a small amount of surrounding fat stranding l ikely due to colitis. Recommend follow-up to resolution. Reviewed, dictated and finalized at location A. IMPRESSION: 1. Thickening of the cain of the descending colon with a small amount of surro unding fat stranding likely due to colitis. Recommend follow-up to resolution.
[2025-04-26 12:13] VITALS: BP 173/114; PULSE 71; RESP 16; TEMP 36.6; O2SAT 100
--- OUTSIDE RECORDS SUMMARY | 2025-04-26 12:14 | XMS_ITS | Clinical Summary ---
Author Organization [facility] Oration Address [address] [place] [address] Care Team Providers Care Air Chipper Name Role Phone Jaime Hayes MD Primary Care Provider Source Comments [facility],non-owned Affiliates and Associated Physician Practices is amultiple site organization consisting of ambulatory clinics and hospital sitesin [place], [place], [place] and [place]. This disclosure is being madepursuant to the Care Everywhere program and may not contain all information available regarding this patient. Last updated 18.[facility] Oration Allergies No known active allergies Medications * Be aware that medications may not be up to date on this document. Alwaysverify current medications with the patient. Blood Glucose Monitoring Suppl (ONETOUCH VERIO REFLECT) w/Device KIT Use 1 Each 4 times daily USE METER TO TEST BLOOD SUGAR 4 TIMES DAILY 1 kit 2 Active blood glucose (ONETOUCH VERIO) test strip USE ONE STRIP TO TEST BLOOD SUGAR 4 TIMES DAILY 100 strip 3 2 Active Lancets (ONETOUCH DELICA PLUS 33G EXTRA FINE LANCET) USE ONE LANCET TO TEST BLOOD SUGAR 4 TIMES DAILY 100 Each 3 2 Active Alcohol Swabs 70 % USE ONE SWAB TO CLEAN SKIN 4 TIMES DAILY 100 Each 3 2 Active dulaglutide (TRULICITY) 0.75 MG/0.5ML injection Inject 0.5 mL subcutaneously every 7 days 0.5 mL 4 2 Active atorvastatin (Lipitor) 80 MG tablet Take 1 (one) tablet by mouth at bedtime Active metoprolol tartrate IR (Lopressor) 25 MG tablet Take 1 (one) tablet by mouth 2 times daily Active amLODIPine (Norvasc) 10 MG tablet Take 1 (one) tablet by mouth once daily Active lisinopril (Prinivil; Zestril) 20 MG tablet Take 1 (one) tablet by mouth once daily Active metFORMIN (Glucophage) 500 MG tablet Take 1 (one) tablet by mouth once daily Active aspirin (Aspirin) 81 MG chew tablet Take 1 (one) tablet by mouth once daily 100 tablet 4 3 Active Active Problems Problem Noted Date Diagnosed Date VALERIA (obstructive sleep apnea) 01/11/2022 Type 2 diabetes mellitus wit h hyperglycemia, without long-term current use of insulin 01/11/2022 Central obesity 01/11/2022 Hypertension, secondary 01/11/2022 SAH (subarachnoid hemorrhage) 01/05/2022 Fall 01/05/2022 Subarachnoid bleed 01/05/2022 Word finding difficulty 01/05/2022 Social History Tobacco Use Types Packs/Day Years Used Date Smoking Tobacco: Never Smokeless Tobacco: Never Tobacco Cessation:Counseling Given: Not Answered Alcohol Use Standard Drinks/Week Comments Never 0 (1 standard drink = 0.6 oz pur e alcohol) AUDIT-C Answer Date Recorded Q1: How often do you have a drink containing alc ohol? Monthly or less 01/05/2022 Q2: How many drinks containi ng alcohol do you have on a typical day when you are drinking? 1 or 2 01/05/2022 Q3: How often do you have si x or more drinks on one occasion? Never 01/05/2022 Hunger Vital Sign Answer Date Recorded Within the past 12 months, y ou worried that your food would run out before you got the money to buy more. Never true 01/06/20 22 Within the past 12 months, t he food you bought just didn't last and you didn't have money to get more. Never true 01/05/2022 Sex and Gender Information Value Date Recorded Sex Assigned at Male 01/26/2022 10:12 AM CDT Legal Sex Male 12:13 AM CDT Gender Identity Male 01/26/2022 10:12 AM CDT Sexual Orientation Straight 01/26/2022 10 :12 AM CDT Last Filed Vital Signs Vital Sign Reading Time Taken Comments Blood Pressure 131/89 02/28/2023 7:56 AM CDT Pulse 64 02/28/2023 7:56 AM CDT Temperature 37.1 C (98.8 F) 01/11/2022 12:19 PM CDT Respiratory Rate 12 02/28/2023 7:56 AM CDT Oxygen Saturation 99% 02/18/2022 10:22 AM CDT Inhaled Oxygen Concentration 32% 01/06/2022 1 :25 AM CDT Weight 114.8 kg (253 lb) 02/28/2023 7:56 AM CDT Height 190.5 cm (6' 3) 02/18/2022 10:22 AM CDT Body Mass Index 31.62 02/18/2022 10:22 AM CDT Plan of Treatment Health Maintenance Due Date Last Done Comments COLOGUARD (AGES 45-75) - COLON CA SCREENING 1972 COLON MONITORING 1972 COLONOSCOPY - COLON CA SCREENING 1972 CT COLONOGRAPHY - COLON CA SCREENING 1972 Colorectal Cancer Screening 1972 FIT - COLON CA SCREENING 1972 FLEX SIG - COLON CA SCREENING 1972 HIV SCREENING 02/01/1987 HEPATITIS C SCREENING 01/28/1990 DTAP/TDAP/TD VACCINES (1 - Tdap) 02/01/1991 HEPATITIS B VACCINE (1 of 3 - 19+ 3-dose series) 02/01/1991 PNEUMOCOCCAL VACCINE 50+ (1 of 2 - PCV) 02/01/1991 DIABETES RETINOPATHY SCREENING 01/11/2022 DIABETES-FOOT EXAM WITH MONOFILAMENT 01/11/2022 ZOSTER VACCINE (1 of 2) 02/01/2022 DIABETES-HGB A1C 04/08/2022 01/07/2022 DIABETES-SERUM CREATININE 04/29/20242022, 01/11/2022, 01/10/2022, Additional history exists COVID-19 VACCINE (4 - 2024-25 season) 2024 09/16/2021, 01/03/2021, 12/13/2020 DEPRESSION SCREENING 09/12/2024 DIABETES - URINE PROTEIN SCREENING 09/12/2024 INFLUENZA VACCINE (#1) 2025 10/02/2013 HIB VACCINE Aged Out No longer eligi ble based on patient's age to complete this topic HPV VACCINE Aged Out No longer eligi ble based on patient's age to complete this topic MENINGOCOCCAL (Group B) VACCINE SHARED DECISION-MAKING Aged Out No longer eligible based on patient's age to complete this topic MENINGOCOCCAL GROUPS A/C/Y/W VACCINE Aged Out No longer eligible based on patient's age to complete this topic Procedures Procedure Name Priority Date/Time Associated Diagnosis Comments CREATININE - POCT INTERFACED Routine 04/29/2023 2:44 PM CDT HEMOGLOBIN A1C YOUNG 01/07/2022 8:24 AM CDT Subarachnoid bleed from Last 3 Months or Most Recently Relevant to Health Maintenance Results * (ABNORMAL) CREATININE - POCT INTERFACED (04/29/2023 2:44 PM CDT) Creatinine POCT 1.03 0.30 - 1.30 mg/dL 04/29/2023 2:48 PM CDT [facility] eGFR 88(L) >90 mL/min/1.7 3 m2 04/29/2023 2:48 PM CDT [facility] Blood BLOOD SPECIMEN / Unknown 04/29/2023 2:44 PM CDT 04/29/2023 2:48 PM CDT us Maykel Hurtado MD LAB - POINT OF CARE ORDERABL ES Final Result [facility] [address] [address], [facility] [phone] * (ABNORMAL) HEMOGLOBIN A1C (01/07/2022 8:24 AM CDT) Hemoglobin A1c >14.0(H) <=5.6 % 01/07/2022 9:58 AM CDT [facility] Estimated Average Glucose >355 mg/dL 01/07/2022 9:58 AM T [facility] Comment: HbA1c Interpretation: Normal : < 5.7% Pre-diabetes: 5.7-6.4% Diabetes: Equal to or greater than 6.5% Test results diagnostic of diabetes should be repeated for confirmation. Treatment target values recommended by ADA and other clinical organizations should be used to evaluate metabolic control in patients. Reference: [place] Diabetes Association, Standards of Care in Diabetes -2020 In patients 70 years and older consider HbA1c target range of 7.0-7.5% (Reference: Lokesh Bahena, et al. JAMDA. 2012) The Sebia assay for the measurement of HbA1c is a National Glycohemoglobin Standardization Program (NGSP) certified method. Blood BLOOD SPECIMEN / Unknown Venipuncture / Unknown 01/07/2022 8:24 AM CDT 01/07/2022 8:29 AM CDT Steph Mendoza MD LAB - CHEMISTRY ORDERABLES Sue kincaid Result [facility] [address] [place] [address], [facility] [phone] from Last 3 Months or Most Recently Relevant to Health Maintenance Insurance [facility] Advance Directives * Full Code (Latest Code Status on File) Date Activated Date Inactivated Comments 01/05/2022 1:37 AM 01/11/2022 7:40 PM Care Teams Air Chipper Relationship Specialty Start Date End Date Jaime Hayes MD [address] [facility] [address] [place] [address] PCP - General 02/15/22
--- OUTSIDE RECORDS SUMMARY | 2025-04-26 12:14 | XMS_ITS | Encounter Summary ---
Author Organization [facility] Address [address] [place] [address] Care Team Providers Care Test Engine Operator Name Role Phone Jaime Hayes MD Primary Care Provider Reason for Visit * Reason Onset Date Comments MEDICATION REFILL 01/22/2022 Encounter Details Date Type Department Care Team (Late st Contact Info) Description 01/22/2022 Refill [facility] 3S ICU [address] [place] [id number] Ap Simmons MD [address] [facility] 2L [facility] [place] [address] MEDICATION REFILL Social History Tobacco Use Types Packs/Day Years Used Date Smoking Tobacco: Never Smokeless Tobacco: Never Alcohol Use Standard Drinks/Week Comments Never 0 [...] money to buy more. Never true 01/06/20 Within the past 12 months, t he food you bought just didn't last and you didn't have money to get more. Never true 01/05/2022 Sex and Gender Information Value Date Recorded Sex Assigned at Male 01/26/2022 10:12 AM CDT Legal Sex Male 12:13 AM CDT Gender Identity Male 01/26/2022 10:12 AM CDT Sexual Orientation Straight 01/26/2022 10 :12 AM CDT documented as of this encounter Functional Status * Is person deaf or have serious hearing difficulty? Answer Date of Assessment Author No 01/05/2022 7:43 AM CDT Peyton Chavez RN * Is person blind or have serious difficulty seeing? Answer Date of Assessment Author No 01/05/2022 7:43 AM CDT Peyton Chavez RN * Does person have serious difficulty walking/climbing stairs? Answer Date of Assessment Author No 01/05/2022 7:43 AM CDT Peyton Chavez RN * Does person have difficulty dressing/bathing? Answer Date of Assessment Author No 01/05/2022 7:43 AM ASHLEYT Peyton Chavez RN * Does person have difficulty doing errands alone? Answer Date of Assessment Author No 01/05/2022 7:43 AM ASHLEYT Peyton Chavez RN documented as of this encounter Mental Status * Does person have difficulty concentrating/remembering/making decisions? Answer Entry Date Author No 01/05/2022 7:43 AM ASHLEYT Peyton Chavez RN documented in this encounter Plan of Treatment Not on file documented as of this encounter Visit Diagnoses Not on filedocumented in this encounter Care Teams Test Engine Operator Relationship Specialty Start Date End Date Jaime Hayes MD [address] [address] PCP - General 02/15/22 documented as of this encounter
[2025-04-26 12:42] LABS: Hematocrit 48.6 % (42.0-52.0); Hemoglobin 15.7 g/dL (14.0-18.0); Immature Granulocyte Percent A 0.2 % (0-0.5); Lymphocytes Absolute Auto 2.22 K/mm3 (0.9-3.2); Mean Corpuscular HGB Conc 32.3 g/dl (32-36); Mean Corpuscular Hemoglobin 28.8 pg (26-34); Mean Corpuscular Volume 89.2 fl (80-100); Nucleated Red Blood Cells Absolute Auto 0.000 K/mm3 (0.0-0.012); Nucleated Red Blood Cells Perc 0.0 % (0.0-0.2); Platelet Count Result 257 k/mm3 (150-375); Red Blood Count 5.45 M/mm3 (4.6-6.20); White Blood Count 9.6 K/mm3 (4.5-10.0)
[2025-04-26 12:49] LABS: Alanine Aminotransferase 60 U/L (6-50); Albumin Level 4.6 g/dL (3.5-5.1); Alkaline Phosphatase 77 U/L (38-126); Anion Gap 8 mmol/L (4-12); Aspartate Amino Transferase 42 U/L (17-59); Bilirubin,Total 1.0 mg/dL (0.2-1.3); Blood Urea Nitrogen 21 mg/dL (9-20); Calcium 9.9 mg/dL (8.4-10.2); Carbon Dioxide 27 mmol/L (22-30); Chloride 103 mmol/L (98-107); Estimated CRCL calculation 107 ml/min; Estimated Glomerular Filt Rate > 60; Glucose 123 mg/dL (65-110); Potassium 4.0 mmol/L (3.4-5.0); Sodium 138 mmol/L (137-145); Total Protein 8.1 g/dL (6.3-8.2)
[2025-04-26 12:52] LABS: INR 1.1; Prothrombin Time 14.0 Seconds (11.1-14.7)
[2025-04-26 12:53] LABS: Partial Thromboplastin Time 23.7 Seconds (22.3-36.8)
--- OUTSIDE RECORDS SUMMARY | 2025-04-26 13:16 | XMS_ITS | Encounter Summary ---
Author Organization [facility] Address [address] [place] [address] Care Team Providers Care Flat Clothier Name Role Phone Jaime Hayes MD Primary Care Provider Reason for Visit * Reason Onset Date Comments MEDICATION REFILL 01/22/2022 Encounter Details Date Type Department Care Team (Late st Contact Info) Description 01/22/2022 Refill [facility] 3S ICU [address] [place] [phone] Ap Simmons MD [address] [facility] 2L [facility] [place] [address] MEDICATION REFILL Social History Tobacco Use Types [...] on filedocumented in this encounter Care Teams Flat Clothier Relationship Specialty Start Date End Date Jaime Hayes MD [address] [address] PCP - General 02/15/22 documented as of this encounter
--- OUTSIDE RECORDS SUMMARY | 2025-04-26 13:16 | XMS_ITS | Clinical Summary ---
Author Organization [facility] [employer] Address [address] [facility] [place] [address] Care Team Providers Care Chest Painting Leader Name Role Phone Jaime Hayes MD Primary Care Provider Source Comments [facility],non-owned Affiliates and Associated Physician Practices is amultiple site organization consisting of ambulatory clinics and hospital sitesin [place], [place], [place]. This disclosure is being madepursuant to the Care Everywhere program and may not contain all information available regarding this patient. Last updated 18.[facility] [employer] Allergies No known active allergies Medications * [...] - 1.30 mg/dL 04/29/2023 2:48 PM CDT [facility] eGFR 88(L) >90 mL/min/1.7 3 m2 04/29/2023 2:48 PM CDT [facility] Blood BLOOD SPECIMEN / Unknown 04/29/2023 2:44 PM CDT 04/29/2023 2:48 PM CDT us Maykel Hurtado MD LAB - POINT OF CARE ORDERABL ES Final Result [facility] [address] [address], [facility] [phone] * (ABNORMAL) HEMOGLOBIN A1C (01/07/2022 8:24 AM CDT) Hemoglobin A1c >14.0(H) <=5.6 % 01/07/2022 9:58 AM CDT [facility] Estimated Average Glucose >355 mg/dL 01/07/2022 9:58 AM T [facility] Comment: HbA1c Interpretation: Normal : < 5.7% Pre-diabetes: 5.7-6.4% Diabetes: Equal to or greater than 6.5% Test results diagnostic of diabetes should be repeated for confirmation. Treatment target values recommended by ADA and other clinical organizations should be used to evaluate metabolic control in patients. Reference: [place] Diabetes Association, Standards of Care in Diabetes [...] LAB - CHEMISTRY ORDERABLES Sue kincaid Result [facility] [address] [place] [address], [facility] [phone] from Last 3 Months or Most Recently Relevant to Health Maintenance Insurance [facility] Advance Directives * Full Code (Latest Code Status on File) Date Activated Date Inactivated Comments 01/05/2022 1:37 AM 01/11/2022 7:40 PM Care Teams Chest Painting Leader Relationship Specialty Start Date End Date Jaime Hayes MD [address] [facility] [address] [place] [address] PCP - General 02/15/22
[2025-04-26 13:30] VITALS: BP 137/83; PULSE 72; RESP 18; O2SAT 96
[2025-04-26 14:00] VITALS: BP 118/82; PULSE 65; RESP 16; O2SAT 97
--- NOTE | 2025-04-26 14:40 | ED_ITS ---
HPI - General Adult General Chief complaint: GI Bleed Stated complaint: abd pain Time Seen by Provider: 04/26/25 12:37 History of Present Illness HPI narrative: This is a 55-year-old male presenting for GI bleeding. Patient has been having diarrhea for the last 2 days. After a large bout of normal diarrhea he then passed a small amount of blood in the toilet. He noticed it when he was wiping. The diarrhea was associated with crampy gas pains in the lower abdomen. He does not have any fevers, nausea vomiting or abdominal tenderness. No use of blood thinners. Patient has history of hemorrhoids. Related Data Home Medications ?Medication ?Instructions ?Recorded ?Confirmed ?Last Taken ?Type lisinopril 20 mg tablet 20 mg PO DAILY 03/20/22 05/19/24 10/07/22 08:00 History metoprolol tartrate 25 mg tablet 25 mg PO BID 03/20/22 05/19/24 10/07/22 21:00 History metformin 500 mg tablet,extended 500 mg PO DAILY 10/04/22 05/19/24 10/07/22 18:00 History release 24 hr Allergies Allergy/AdvReac Type Severity Reaction Status Date / Time No Known Allergies Allergy Mild Verified 04/26/25 12:18 [facility] Past Medical History Medical History GERD (gastroesophageal reflux disease) Hyperlipidemia Obstructive sleep apnea Compliant with CPAP Type 2 diabetes mellitus Subarachnoid hemorrhage (12/2021) Managed medically Hypertension Surgical History Surgical History No history of previous surgery Family History Family History Other Adopted Social History Social History Social History: 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 He has 2 teenage children. He denies any history of tobacco or drug use. He drinks maybe 1 alcoholic beverage a month. Code status: Full code Surrogate decision maker: Smoking status: Never smoker Second hand tobacco smoke exposure: Yes Alcohol intake: former Drinks per week: 1 Substance use: never Substance use type: does not use Lack of Transportation: No Lack of Food: Never True Current Housing: I Have Housing Concerned About Future Housing: No Difficulty Paying Gas/Electric Bills: No Difficulty Paying for Meds: No Currently Unemployed: No Education: Associate Degree Difficulty w/ Childcare or Family Care: No Spiritual care concerns: No Exam 2 Narrative: APPEARANCE: No apparent distress. Head: atraumatic. EYES: EOMI, NOSE: Atraumatic NECK: Trachea midline RESPIRATORY: No increased rate of breathing CTAB CARDIOVASCULAR: RRR, no peripheral edema ABDOMINAL: Non-distended soft nontender Rectal exam: Brown stool in rectal vault, no external hemorrhoids MUSCULOSKELETAl: No obvious deformities NEURO: Alert. Moving 4/4 extremities SKIN:: Warm, dry. Normal color PSYCHIATRIC: Normal affect Course Vital Signs Vital signs: Vital Signs Temperature 97.9 F 04/26/25 12:13 Pulse Rate 71 04/26/25 12:13 Respiratory Rate 16 04/26/25 12:13 Blood Pressure 173/114 H 04/26/25 12:13 Pulse Oximetry 100 04/26/25 12:13 Oxygen Delivery Room Air 04/26/25 12:13 Temperature 97.9 F 04/26/25 12:13 Pulse Rate 71 04/26/25 12:13 Respiratory Rate 16 04/26/25 12:13 Blood Pressure 173/114 H 04/26/25 12:13 Pulse Oximetry 100 04/26/25 12:13 Oxygen Delivery Room Air 04/26/25 12:13 Medical Decision Making MDM Narrative Medical decision making narrative: -Course: 55-year-old male presenting with a small amount of blood after a large bout of diarrhea. Hemoglobin is 15.7. Abdominal exam is benign. Vital signs are stable. No blood on digital rectal exam. CT showed colitis. Patient be treated with a short course of ciprofloxacin given his bloody diarrhea. Patient will be placed on short course of Cipro. Given GI follow-up. Given return precautions. -DDX includes but is not limited to: Hemorrhoids, colitis, diverticular bleed Vital Signs Vital Signs: Vital Signs Temperature 97.9 F 04/26/25 12:13 Pulse Rate 71 04/26/25 12:13 Respiratory Rate 16 04/26/25 12:13 Blood Pressure 173/114 H 04/26/25 12:13 Pulse Oximetry 100 04/26/25 12:13 Oxygen Delivery Room Air 04/26/25 12:13 Temperature 97.9 F 04/26/25 12:13 Pulse Rate 71 04/26/25 12:13 Respiratory Rate 16 04/26/25 12:13 Blood Pressure 173/114 H 04/26/25 12:13 Pulse Oximetry 100 04/26/25 12:13 Oxygen Delivery Room Air 04/26/25 12:13 Lab Data 04/26/25 12:23 04/26/25 12:23 Labs: Lab Results 04/26/25 04/26/25 Range/Units 12:23 12:55 WBC 9.6 (4.5-10.0) K/mm3 RBC 5.45 (4.6-6.20) M/mm3 Hgb 15.7 (14.0-18.0) g/dL Hct 48.6 (42.0-52.0) % MCV 89.2 (80-100) fl MCH 28.8 (26-34) pg MCHC 32.3 (32-36) g/dl RDW 13.2 (11.5-14.5) % Plt Count 257 (150-375) k/mm3 MPV 9.0 (7.4-10.4) fl Immature Gran % (Auto) 0.2 (0-0.5) % Neut % (Auto) 67.9 (45.5-73.1) % Lymph % (Auto) 23.2 (18.3-44.2) % [place] % (Auto) 6.5 (2.6-8.5) % Eos % (Auto) 1.4 (0-4.4) % Baso % (Auto) 0.8 (0.2-1.2) % Lymph # (Auto) 2.22 (0.9-3.2) K/mm3 [place] # (Auto) 0.6 (0.1-0.6) K/mm3 Eos # (Auto) 0.1 (0-0.3) K/mm3 Baso # (Auto) 0.1 (0.0-0.1) K/mm3 Abs Immat Gran (auto) 0.02 (0.00-0.031) K/mm3 Absolute Neuts (auto) 6.5 (1.3-6.7) K/mm3 Absolute Nucleated RBC 0.000 (0.0-0.012) K/mm3 Nucleated RBC % 0.0 (0.0-0.2) % PT 14.0 (11.1-14.7) Seconds INR 1.1 APTT 23.7 (22.3-36.8) Seconds Sodium 138 (137-145) mmol/L Potassium 4.0 (3.4-5.0) mmol/L Chloride 103 (98-107) mmol/L Carbon Dioxide 27 (22-30) mmol/L Anion Gap 8 (4-12) mmol/L BUN 21 H (9-20) mg/dL Creatinine 0.98 (0.7-1.3) mg/dL Estim Creat Clear Calc 107 ml/min Estimated GFR > 60 (59 - ) Glucose 123 H (65-110) mg/dL Calcium 9.9 (8.4-10.2) mg/dL Total Bilirubin 1.0 (0.2-1.3) mg/dL AST 42 (17-59) U/L ALT 60 H (6-50) U/L Alkaline Phosphatase 77 (38-126) U/L Total Protein 8.1 (6.3-8.2) g/dL Albumin 4.6 (3.5-5.1) g/dL Blood Type A Positive Antibody Screen Negative Discharge Plan Discharge Clinical Impression: Colitis Patient Disposition: Home Condition: Stable Instructions: Antibiotic Form, Colitis (ED) Additional Instructions: You were seen in the emergency department after a bloody bowel movement. You have colitis. Please complete a course of Cipro. Please follow-up with the GI doctor listed below. If you develop severe abdominal pain, profuse bloody diarrhea she condition is getting worse please return to ED for re-evaluation. Patient Language: [place] Island[place] Prescriptions: New ciprofloxacin HCl [Cipro] 500 mg tablet 500 mg PO Q12H 5 Days Qty: 10 0RF No Action lisinopril 20 mg tablet 20 mg PO DAILY metoprolol tartrate 25 mg tablet 25 mg PO BID prednisone 50 mg tablet 50 mg PO DAILY Qty: 5 0RF triamcinolone acetonide 0.1 % cream 1 applic topical BID Qty: 30 0RF hydroxyzine HCl 10 mg tablet 10 mg PO Q6-8H PRN (Reason: itching) Qty: 30 0RF metformin 500 mg tablet extended release 24 hr 500 mg PO DAILY aspirin 325 mg Tablet 325 mg PO DAILY@0800 30 Days Qty: 30 0RF amlodipine [Norvasc] 5 mg Tablet 10 mg PO QAM 30 Days Qty: 60 0RF atorvastatin 40 mg Tablet 80 mg PO DAILY 30 Days Qty: 60 0RF lorazepam [Ativan] 0.5 mg tablet 0.5 mg PO Q4H PRN (Reason: vertigo) Qty: 30 0RF Follow-up/Referrals: Abigail,Jaime Vargas MD [Primary Care Provider] - Yohannes Womack MD [Physician] - 1 Week (colitis )
[2025-04-26 15:00] VITALS: BP 129/87; PULSE 63; RESP 20; O2SAT 98
== END 2025-04-26 16:16 | disposition home or self-care (01) ==
PROVIDERS: Emergency Provider Emergency Medicine; PCP Internal Medicine
DX: K52.9 Noninfective gastroenteritis and colitis, unspecified (principal); I10 Essential (primary) hypertension; E78.5 Hyperlipidemia, unspecified; E11.9 Type 2 diabetes mellitus without complications; K21.9 Gastro-esophageal reflux disease without esophagitis; G47.33 Obstructive sleep apnea (adult) (pediatric); Z77.22 Contact with and (suspected) exposure to environmental tobacco smoke (acute) (chronic); Z79.84 Long term (current) use of oral hypoglycemic drugs; Z79.899 Other long term (current) drug therapy
CPT/HCPCS: 36415; 74177; 80053; 85025; 85610; 85730; 86850; 86900; 86901; 99284; Q9967